=== PATIENT | male | born 1935 | race Caucasian/White ===

== ENCOUNTER 2017-03-07 09:51 | Inpatient (IN) | payer OTHER ==
[~2017-03-07] VITALS: Ht 182.9 cm; Wt 71.6 kg
[~2017-03-07 09:51] MED LIST: ACET-1311 PO; ALBINS/ INH; ALUMSUS37; ASPCH81X PO; ATOR-22 PO; BETH25TA2 PO; BISA10SU7 RE; CITA10TA8 PO; CLOT-40 TOP; ERGO500037 PO; FINA5TAB PO; GUAI100S75 PO; Ipratropium-Albuterol INH; LORA-741 PO; LVQ500 PO; METO25TA3 PO; MOML PO; MRLP17 PO; NMN5 PO; OXGN; SENN-83 PO; SODI1ENE; TAMS0.4C38 PO; TERBINAFINE 1%; [UNRECOGNIZED DRUG - CODE]; [UNRECOGNIZED DRUG - OTHER] IV
--- NOTE | 2017-03-07 10:15 | EMERGENCY ROOM VISIT NOTE ---
History First contact with patient: 09:58 Stated Complaint: SYNCOPE History of Present Illness The patient is a 81 year old male who presents to the Emergency Room due to an episode of syncope and subsequent apnea. He has Alzheimer's Disease and is a resident of [facility]. He was unable to provide a history, however as per [facility], he had a syncopal episode, and was unresponsive for 30 seconds afterwards. There was no mention of head trauma. He has also been on Levaquin for the past few days. Past Medical/Surgical History Medical Problems: (1) COPD (chronic obstructive pulmonary disease) (2) COPD exacerbation (3) Dementia (4) Diverticulitis (5) Encephalopathy acute (6) Hematuria (7) Hypotension (8) Hypoxia (9) Hypoxia (10) Ileus (11) Respiratory acidosis (12) Syncopal episodes (13) Urinary retention (14) UTI (urinary tract infection) Family History Diabetes mellitus FH: heart disease Stroke Social History Smoking Status: Unknown if Ever Smoked Drug Use: none Marital Status: single Occupation Status: retired Current/Historical Medications Scheduled Aspirin (Aspirin Chewable), 81 MG PO PM Atorvastatin (Lipitor), 20 MG PO HS Bethanechol Chloride (Urecholine), 25 MG PO TID Budesonide (Inhalation) (Pulmicort Respules 0.25MG/2ML), 2 ML INH BID Citalopram Hydrobromide (Celexa), 10 MG PO DAILY Donepezil Hydrochloride (Aricept), 10 MG PO DAILY Ergocalciferol (Vitamin D 49943 Unit), 1 CAP PO WK Finasteride (Proscar), 5 MG PO DAILY Memantine (Namenda), 5 MG PO BID Metoprolol Succ (Toprol Xl) (Toprol-Xl), 12.5 MG PO DAILY Polyethylene (Miralax), 17 GM PO DAILY Sennosides-Docusate Sodium (Senexon-S), 2 TABS PO HS Tamsulosin Hcl (Flomax), 0.4 MG PO HS Terbinafine Hcl (Topical) (Antifungal Foot), 1 APPLN TOP BID Scheduled PRN Ipratropium Alpine (Ipratropium Alpine), 1 VIAL NEB TID PRN for SOB/Wheezing Physical Exam Vital Signs Date Time Temp Pulse Resp B/P (MAP) Pulse Ox O2 Delivery O2 Flow Rate FiO2 03/07/17 11:29 54 18 101/62 95 Room Air 03/07/17 10:16 36.5 53 18 104/65 97 Room Air 03/07/17 10:16 90 Room Air 03/07/17 10:06 59 Physical Exam No pertinent findings except as reported. General Appearance: WD/WN, no apparent distress Head: normocephalic, atraumatic Respiratory/Chest: chest non-tender, no respiratory distress, no accessory muscle use, + pertinent finding (coarse breath sounds. Coughing repeatedly) Cardiovascular: regular rate, rhythm, no edema, no gallop, no JVD, no murmur , normal peripheral pulses Abdomen / GI: normal bowel sounds, non tender, soft, no organomegaly, no pulsatile mass Neurologic/Psych: + disoriented, + pertinent finding (continuously repeats words/sounds) Medical Decision & Procedures ER Provider Diagnostic Interpretation: HEAD WITHOUT CONTRAST (CT) CT DOSE: 614.27 mGy.cm HISTORY: Mental status change AMS TECHNIQUE: Multiaxial CT images of the head were performed without the use of intravenous contrast. A dose lowering technique was utilized adhering to the principles of ALARA. Comparison: 05/12/2016 Findings: The paranasal sinuses and mastoid air cells are clear. Findings of generalized cerebellar as well as cerebral atrophy. This is unchanged in the prior exam. No evidence for acute intracranial hemorrhage. No midline shift. Impression: Atrophy. Age-related change. No acute process. The above report was generated using voice recognition software. It may contain grammatical, syntax or spelling errors. Electronically signed by: Brock Neal M.D. 03/07/2017 10:52 AM Dictated Date/Time: 03/07/2017 10:51 AM CHEST ONE VIEW PORTABLE CLINICAL HISTORY: AMS dyspnea COMPARISON STUDY: 05/14/2016 FINDINGS: No evidence for cardiac enlargement. Chronic interstitial change throughout both hemithoraces. Improved prominence of pulmonary vasculature compared to the prior exam. Interposed loop of bowel beneath the right hemidiaphragm. IMPRESSION: Mild chronic interstitial change. No acute process of the chest. Laboratory Results 03/07/17 10:00 Red Blood Count 4.68, Mean Corpuscular Volume 91.9, Mean Corpuscular Hemoglobin 29.1, Mean Corpuscular Hemoglobin Concent 31.6, Mean Platelet Volume 11.8, Neutrophils (%) (Auto) 60.5, Lymphocytes (%) (Auto) 22.1, Monocytes (%) (Auto) 9.3, Eosinophils (%) (Auto) 7.1, Basophils (%) (Auto) 0.7, Neutrophils # (Auto) 3.58, Lymphocytes # (Auto) 1.31, Monocytes # (Auto) 0.55, Eosinophils # (Auto) 0.42, Basophils # (Auto) 0.04 03/07/17 10:00 Test 03/07/17 10:00 03/07/17 11:20 03/07/17 11:52 White Blood Count 5.92 K/uL (4.8-10.8) Red Blood Count 4.68 M/uL (4.7-6.1) Hemoglobin 13.6 g/dL (14.0-18.0) Hematocrit 43.0 % (42-52) Mean Corpuscular Volume 91.9 fL (80-100) Mean Corpuscular Hemoglobin 29.1 pg (25-34) Mean Corpuscular Hemoglobin Concent 31.6 g/dl (32-36) Platelet Count 178 K/uL (130-400) Mean Platelet Volume 11.8 fL (7.4-10.4) Neutrophils (%) (Auto) 60.5 % Lymphocytes (%) (Auto) 22.1 % Monocytes (%) (Auto) 9.3 % Eosinophils (%) (Auto) 7.1 % Basophils (%) (Auto) 0.7 % Neutrophils # (Auto) 3.58 K/uL (1.4-6.5) Lymphocytes # (Auto) 1.31 K/uL (1.2-3.4) Monocytes # (Auto) 0.55 K/uL (0.11-0.59) Eosinophils # (Auto) 0.42 K/uL (0-0.5) Basophils # (Auto) 0.04 K/uL (0-0.2) RDW Standard Deviation 49.3 fL (36.4-46.3) RDW Coefficient of Variation 14.7 % (11.5-14.5) Immature Granulocyte % (Auto) 0.3 % Immature Granulocyte # (Auto) 0.02 K/uL (0.00-0.02) Prothrombin Time 10.7 SECONDS (9.0-12.0) Prothromb Time International Ratio 1.0 (0.9-1.1) Activated Partial Thromboplast Time 28.0 SECONDS (21.0-31.0) Partial Thromboplastin Ratio 1.1 Anion Gap 8.0 mmol/L (3-11) Est Creatinine Clear Calc Drug Dose 63.1 ml/min Estimated GFR () 84.6 Estimated GFR (Non- 73.0 BUN/Creatinine Ratio 22.9 (10-20) Calcium Level 8.8 mg/dl (8.5-10.1) Total Bilirubin 0.4 mg/dl (0.2-1) Direct Bilirubin < 0.1 mg/dl (0-0.2) Aspartate Amino Transf (AST/SGOT) 24 U/L (15-37) Alanine Aminotransferase (ALT/SGPT) 34 U/L (12-78) Alkaline Phosphatase 119 U/L (45-117) Troponin I < 0.015 ng/ml (0-0.045) Total Protein 7.6 gm/dl (6.4-8.2) Albumin 3.1 gm/dl (3.4-5.0) Erythrocyte Sedimentation Rate 32 mm/hr (0-14) Urine Color YELLOW Urine Appearance CLEAR (CLEAR) Urine pH 7.5 (4.5-7.5) Urine Specific [place] 1.012 (1.000-1.030) Urine Protein NEG (NEG) Urine Glucose (UA) NEG (NEG) Urine Ketones NEG (NEG) Urine Occult Blood NEG (NEG) Urine Nitrite NEG (NEG) Urine Bilirubin NEG (NEG) Urine Urobilinogen NEG (NEG) Urine Leukocyte Esterase NEG (NEG) Urine WBC (Auto) 0 /hpf (0-5) Urine RBC (Auto) 0-4 /hpf (0-4) Urine Hyaline Casts (Auto) 1-5 /lpf (0-5) Urine Epithelial Cells (Auto) 10-20 /lpf (0-5) Urine Bacteria (Auto) NEG (NEG) D-Dimer 1740 ug/L FEU (0-500) Medical Decision The patient was evaluated in room B4. His imaging and lab results are listed above. His syncopal episode and apnea requires further workup and therefore he will be evaluated by the hospitalist and admitted. Departure Information Referrals No Doctor, Assigned (PCP) Resident Tracking Resident Involvement: Resident Care Provided Care Provided: Adult Hospital Medicine
--- NOTE | 2017-03-07 10:35 | DIAGNOSTIC IMAGING REPORT ---
CHEST ONE VIEW PORTABLE CLINICAL HISTORY: AMS dyspnea COMPARISON STUDY: 05/14/2016 FINDINGS: No evidence for cardiac enlargement. Chronic interstitial change throughout both hemithoraces. Improved prominence of pulmonary vasculature compared to the prior exam. Interposed loop of bowel beneath the right hemidiaphragm. IMPRESSION: Mild chronic interstitial change. No acute process of the chest. The above report was generated using voice recognition software. It may contain grammatical, syntax or spelling errors. Electronically signed by: Brock Neal M.D. 03/07/2017 10:34 AM Dictated Date/Time: 03/07/2017 10:33 AM
--- NOTE | 2017-03-07 10:44 | EMERGENCY ROOM VISIT NOTE ---
History Report prepared by Rafy: Ignacia Cisse Under the Supervision of: Dr. Bridger Henderson M.D. First contact with patient: 09:58 Stated Complaint: SYNCOPE History of Present Illness The patient is a 81 year old male who presents to the Emergency Room with complaints of a sudden syncopal episode that occurred prior to arrival. Per nursing staff the patient has a history of Alzheimer's. Nursing staff states that the patient arrives via ALS from [facility] after a syncopal episode. Nursing staff states that the patient was unresponsive for 30 seconds and then had a short episode of apnea for 30 seconds. The patient reports a persistent cough. She denies any head trauma or pain. Nursing staff notes that the patient has been on Levaquin for the past several days. The history is limited secondary to the patient's dementia. Source of History: patient, nursing staff History Limited By: dementia Onset: prior to arrival Position: other (global) Quality: other (syncopal episode) Timing: other (sudden) Associated Symptoms: + LOC Review of Systems The history and ROS are limited secondary to the patient's dementia. Past Medical & Surgical Medical Problems: (1) COPD (chronic obstructive pulmonary disease) (2) COPD exacerbation (3) Dementia (4) Diverticulitis (5) Encephalopathy acute (6) Hematuria (7) Hypotension (8) Hypoxia (9) Hypoxia (10) Ileus (11) Respiratory acidosis (12) Syncopal episodes (13) Urinary retention (14) UTI (urinary tract infection) Family History Diabetes mellitus FH: heart disease Stroke Social History Smoking Status: Unknown if Ever Smoked Drug Use: none Marital Status: single Occupation Status: retired Current/Historical Medications Scheduled Aspirin (Aspirin Chewable), 81 MG PO PM Atorvastatin (Lipitor), 20 MG PO HS Bethanechol Chloride (Urecholine), 25 MG PO TID Budesonide (Inhalation) (Pulmicort Respules 0.25MG/2ML), 2 ML INH BID Citalopram Hydrobromide (Celexa), 10 MG PO DAILY Donepezil Hydrochloride (Aricept), 10 MG PO DAILY Ergocalciferol (Vitamin D 89469 Unit), 1 CAP PO WK Finasteride (Proscar), 5 MG PO DAILY Memantine (Namenda), 5 MG PO BID Metoprolol Succ (Toprol Xl) (Toprol-Xl), 12.5 MG PO DAILY Polyethylene (Miralax), 17 GM PO DAILY Sennosides-Docusate Sodium (Senexon-S), 2 TABS PO HS Tamsulosin Hcl (Flomax), 0.4 MG PO HS Terbinafine Hcl (Topical) (Antifungal Foot), 1 APPLN TOP BID Scheduled PRN Ipratropium Norphlet (Ipratropium Norphlet), 1 VIAL NEB TID PRN for SOB/Wheezing Allergies Coded Allergies: BEE STING (Verified Allergy, Unknown, ., 02/18/15) Physical Exam Vital Signs Date Time Temp Pulse Resp B/P (MAP) Pulse Ox O2 Delivery O2 Flow Rate FiO2 03/07/17 11:29 54 18 101/62 95 Room Air 03/07/17 10:16 36.5 53 18 104/65 97 Room Air 03/07/17 10:16 90 Room Air 03/07/17 10:06 59 Physical Exam GENERAL: Patient is pleasantly demented and in no acute distress. HEENT: No acute trauma, normocephalic atraumatic, mucous membranes moist, no nasal congestion, no scleral icterus. NECK: No stridor, no adenopathy, no meningismus, trachea is midline. LUNGS: No dyspnea. Clear to auscultation and equal bilaterally. Crackles in bilateral lung maldonado, no respiratory difficulty. HEART: Regular rate and rhythm. No murmurs, rubs, gallops appreciated. ABDOMEN: Soft, nontender, bowel sounds positive, no masses appreciated, no peritonitis. BACK: No midline tenderness, no CVA tenderness EXTREMITIES: Normal motion all extremities, no cyanosis, no edema. NEUROLOGIC: Awake, answers questions, but pleasantly demented, no acute motor or sensory deficits, no focal weakness, cranial nerves grossly intact. SKIN: No rash, no jaundice, no diaphoresis. Medical Decision & Procedures ER Provider Diagnostic Interpretation: Radiology results and stated below per my review and radiologist interpretation: HEAD WITHOUT CONTRAST (CT) CT DOSE: 614.27 mGy.cm HISTORY: Mental status change AMS TECHNIQUE: Multiaxial CT images of the head were performed without the use of intravenous contrast. A dose lowering technique was utilized adhering to the principles of ALARA. Comparison: 05/12/2016 Findings: The paranasal sinuses and mastoid air cells are clear. Findings of generalized cerebellar as well as cerebral atrophy. This is unchanged in the prior exam. No evidence for acute intracranial hemorrhage. No midline shift. Impression: Atrophy. Age-related change. No acute process. The above report was generated using voice recognition software. It may contain grammatical, syntax or spelling errors. Electronically signed by: Brock Neal M.D. 03/07/2017 10:52 AM Dictated Date/Time: 03/07/2017 10:51 AM CHEST ONE VIEW PORTABLE CLINICAL HISTORY: AMS dyspnea COMPARISON STUDY: 05/14/2016 FINDINGS: No evidence for cardiac enlargement. Chronic interstitial change throughout both hemithoraces. Improved prominence of pulmonary vasculature compared to the prior exam. Interposed loop of bowel beneath the right hemidiaphragm. IMPRESSION: Mild chronic interstitial change. No acute process of the chest. The above report was generated using voice recognition software. It may contain grammatical, syntax or spelling errors. Electronically signed by: Brock Neal M.D. 03/07/2017 10:34 AM Dictated Date/Time: 03/07/2017 10:33 AM Laboratory Results 03/07/17 10:00 Red Blood Count 4.68, Mean Corpuscular Volume 91.9, Mean Corpuscular Hemoglobin 29.1, Mean Corpuscular Hemoglobin Concent 31.6, Mean Platelet Volume 11.8, Neutrophils (%) (Auto) 60.5, Lymphocytes (%) (Auto) 22.1, Monocytes (%) (Auto) 9.3, Eosinophils (%) (Auto) 7.1, Basophils (%) (Auto) 0.7, Neutrophils # (Auto) 3.58, Lymphocytes # (Auto) 1.31, Monocytes # (Auto) 0.55, Eosinophils # (Auto) 0.42, Basophils # (Auto) 0.04 03/07/17 10:00 Test 03/07/17 10:00 03/07/17 11:20 03/07/17 11:52 White Blood Count 5.92 K/uL (4.8-10.8) Red Blood Count 4.68 M/uL (4.7-6.1) Hemoglobin 13.6 g/dL (14.0-18.0) Hematocrit 43.0 % (42-52) Mean Corpuscular Volume 91.9 fL (80-100) Mean Corpuscular Hemoglobin 29.1 pg (25-34) Mean Corpuscular Hemoglobin Concent 31.6 g/dl (32-36) Platelet Count 178 K/uL (130-400) Mean Platelet Volume 11.8 fL (7.4-10.4) Neutrophils (%) (Auto) 60.5 % Lymphocytes (%) (Auto) 22.1 % Monocytes (%) (Auto) 9.3 % Eosinophils (%) (Auto) 7.1 % Basophils (%) (Auto) 0.7 % Neutrophils # (Auto) 3.58 K/uL (1.4-6.5) Lymphocytes # (Auto) 1.31 K/uL (1.2-3.4) Monocytes # (Auto) 0.55 K/uL (0.11-0.59) Eosinophils # (Auto) 0.42 K/uL (0-0.5) Basophils # (Auto) 0.04 K/uL (0-0.2) RDW Standard Deviation 49.3 fL (36.4-46.3) RDW Coefficient of Variation 14.7 % (11.5-14.5) Immature Granulocyte % (Auto) 0.3 % Immature Granulocyte # (Auto) 0.02 K/uL (0.00-0.02) Prothrombin Time 10.7 SECONDS (9.0-12.0) Prothromb Time International Ratio 1.0 (0.9-1.1) Activated Partial Thromboplast Time 28.0 SECONDS (21.0-31.0) Partial Thromboplastin Ratio 1.1 Anion Gap 8.0 mmol/L (3-11) Est Creatinine Clear Calc Drug Dose 63.1 ml/min Estimated GFR () 84.6 Estimated GFR (Non- 73.0 BUN/Creatinine Ratio 22.9 (10-20) Calcium Level 8.8 mg/dl (8.5-10.1) Total Bilirubin 0.4 mg/dl (0.2-1) Direct Bilirubin < 0.1 mg/dl (0-0.2) Aspartate Amino Transf (AST/SGOT) 24 U/L (15-37) Alanine Aminotransferase (ALT/SGPT) 34 U/L (12-78) Alkaline Phosphatase 119 U/L (45-117) Troponin I < 0.015 ng/ml (0-0.045) Total Protein 7.6 gm/dl (6.4-8.2) Albumin 3.1 gm/dl (3.4-5.0) Erythrocyte Sedimentation Rate 32 mm/hr (0-14) Urine Color YELLOW Urine Appearance CLEAR (CLEAR) Urine pH 7.5 (4.5-7.5) Urine Specific [place] 1.012 (1.000-1.030) Urine Protein NEG (NEG) Urine Glucose (UA) NEG (NEG) Urine Ketones NEG (NEG) Urine Occult Blood NEG (NEG) Urine Nitrite NEG (NEG) Urine Bilirubin NEG (NEG) Urine Urobilinogen NEG (NEG) Urine Leukocyte Esterase NEG (NEG) Urine WBC (Auto) 0 /hpf (0-5) Urine RBC (Auto) 0-4 /hpf (0-4) Urine Hyaline Casts (Auto) 1-5 /lpf (0-5) Urine Epithelial Cells (Auto) 10-20 /lpf (0-5) Urine Bacteria (Auto) NEG (NEG) D-Dimer 1740 ug/L FEU (0-500) Laboratory results as reviewed by me. ECG Indication: syncope Rate (beats per minute): 56 Rhythm: sinus bradycardia Findings: no acute ischemic change, prolonged QT, no ectopy ED Course 1001: The patient was evaluated in room B4B. A complete history and physical exam was performed by Dr. Gan, Solution Strategist. 1019: The patient was evaluated in room B4B. A complete history and physical exam was performed. 1114: I reevaluated the patient and he is resting. 1121: I discussed the patient's case with Donya Singh. He is going to evaluate the patient for further treatment. Medical Decision Differential: Toxicological, Infectious, Stroke, SAH, Trauma, Electrolyte Abnormality, Hypoglycemia, Alcohol Intoxication, Drug Intoxication, Cardiac Abnormality, Sepsis, Meningitis/Encephalitis, Trauma, Excited Delirium, Serotonin Syndrome, Psychiatric, amongst other pathologies entertained. 81 yr old pleasantly demented male on Levaquin for reportedly lung source arrives for evaluation of <1 minute syncope with respiratory arrest. No compressions given and patient came too without any interventions. CXR, CT Head , labs unremarkable. EKG with mild QTC prolongation. No evidence torsades currently. Large BM here otherwise no acute findings. Given witnessed syncope at care home will bring in for further monitoring. Medication Reconcilliation Current Medication List: was personally reviewed by me Blood Pressure Screening Patient's blood pressure: Normal blood pressure Blood pressure disposition: Did not require urgent referral (will be monitored by hospitalist) Consults Time Called: 1114 Consulting Physician: Donya Singh Returned Call: 1121 I discussed the patient's case with Donya Singh. He is going to evaluate the patient for further treatment. Impression Primary Impression: Syncope Additional Impression: QT prolongation Scribe Attestation The scribe's documentation has been prepared under my direction and personally reviewed by me in its entirety. I confirm that the note above accurately reflects all work, treatment, procedures, and medical decision making performed by me. Departure Information Dispostion Being Evaluated By Hospitalist Referrals No Doctor, Assigned (PCP) Problem Qualifiers
[2017-03-07] MEDS ORDERED: ATRINS NEB (10:46)
[2017-03-07] MEDS ORDERED: BUDE0.253 INH (10:46)
[2017-03-07] MEDS ORDERED: DONE10TA12 PO (10:46)
[2017-03-07] MEDS ORDERED: TERB1CRE41 TOP (10:50)
--- NOTE | 2017-03-07 10:54 | DIAGNOSTIC IMAGING REPORT ---
HEAD WITHOUT CONTRAST (CT) CT DOSE: 614.27 mGy.cm HISTORY: Mental status change AMS TECHNIQUE: Multiaxial CT images of the head were performed without the use of intravenous contrast. A dose lowering technique was utilized adhering to the principles of ALARA. Comparison: 05/12/2016 Findings: The paranasal sinuses and mastoid air cells are clear. Findings of generalized cerebellar as well as cerebral atrophy. This is unchanged in the prior exam. No evidence for acute intracranial hemorrhage. No midline shift. Impression: Atrophy. Age-related change. No acute process. The above report was generated using voice recognition software. It may contain grammatical, syntax or spelling errors. Electronically signed by: Brock Neal M.D. 03/07/2017 10:52 AM Dictated Date/Time: 03/07/2017 10:51 AM
[2017-03-07 10:56] LABS: BASO % 0.7 %; BASO ABS # 0.04 K/uL (0-0.2); COMPLETE YES; EOS % 7.1 %; IG% 0.3 %; LYMPH % 22.1 %; LYMPH ABS # 1.31 K/uL (1.2-3.4); MEAN CELL VOLUME 91.9 fL (80-100); MEAN CORPUSCULAR HEMOGLOBIN 29.1 pg (25-34); MEAN CORPUSCULAR HGB CONC 31.6 g/dl (32-36); MEAN PLATELET VOLUME 11.8 fL (7.4-10.4); MONO % 9.3 %; NEUT % 60.5 %; PLATELET COUNT 178 K/uL (130-400); RED BLOOD COUNT 4.68 M/uL (4.7-6.1); WHITE BLOOD COUNT 5.92 K/uL (4.8-10.8)
[2017-03-07 11:03] LABS: PARTIAL THROMBOPLASTIN RATIO 1.1; PROTHROMBIN TIME (PATIENT) 10.7 SECONDS (9.0-12.0)
[2017-03-07 11:06] LABS: ALT/SGPT 34 U/L (12-78); BLOOD UREA NITROGEN 22 mg/dl (7-18); BUN/CREATININE RATIO 22.9 (10-20); CALCIUM 8.8 mg/dl (8.5-10.1); CARBON DIOXIDE 27 mmol/L (21-32); CHLORIDE 107 mmol/L (98-107); CREATININE 0.98 mg/dl (0.60-1.40); GLUCOSE 90 mg/dl (70-99); POTASSIUM 4.5 mmol/L (3.5-5.1); SODIUM 142 mmol/L (136-145)
[2017-03-07 11:11] LABS: ALKALINE PHOSPHATASE 119 U/L (45-117); AST/SGOT 24 U/L (15-37)
[2017-03-07 11:38] LABS: URINE APPEARANCE CLEAR (CLEAR); URINE BILIRUBIN NEG (NEG); URINE COLOR YELLOW; URINE NITRITE NEG (NEG); URINE PH 7.5 (4.5-7.5); URINE SPECIFIC GRAVITY 1.012 (1.000-1.030); UROBILINOGEN NEG (NEG); ZZURINE CULT IF INDIC CATH NO
[2017-03-07 11:39] LABS: MANUAL MICROSCOPIC REQUIRED? NO; REVIEW REQ? NO
[2017-03-07] MEDS ORDERED: ALUMINUM/MAGNESIUM/SIMETH (MAALOX MAX) 30 ML UDC PO PRN (12:00)
[2017-03-07] MEDS ORDERED: NITROGLYCERIN 0.4 MG SL PER TAB CHARGE SL PRN (12:00)
[2017-03-07] MEDS ORDERED: ACETAMINOPHEN 325 MG TAB PO PRN (12:00)
[2017-03-07] MEDS ORDERED: MAGNESIUM HYDROXIDE SUSP 30 ML UDC PO PRN (12:00)
[2017-03-07] MEDS ORDERED: ALBUT/IPRATROP 3MG/0.5MG NEB 3 ML VIAL INH PRN (12:00)
[2017-03-07] MEDS ORDERED: POLYETHYLENE (MIRALAX) 17 GM PACK PO PRN (12:00)
--- NOTE | 2017-03-07 12:22 | History and Physical ---
History & Physical Date & Time of Service: Mar 07, 2017 at 12:22 Chief Complaint: Syncope Primary Care Physician: Anushka Williamson M.D. History of Present Illness Source: hospital records, EMS 81 yo male a resident of [facility] with advanced dementia , HTN , hyperlipidemia , sent to ER today for a syncopal episode pt is unable to give any information due to dementia as per ER record -pt had a coughing spell followed by syncope , noted to be apneic for 30 sec pt recovered spontaneously , on arrival to ED , he was awake and alert, mumbling word, no hypoxia CT head negative for acute CVA Cxray -negative study D dimer was elevated CTA of chest done-shows no evidence of PE , essentially negative study Past Medical/Surgical History Medical Problems: (1) COPD (chronic obstructive pulmonary disease) Status: Chronic (2) COPD exacerbation Status: Resolved (3) Dementia Status: Chronic (4) Diverticulitis Status: Chronic (5) Hematuria Status: Resolved (6) Hypotension Status: Resolved (7) Hypoxia Status: Resolved (8) Hypoxia Status: Resolved (9) Ileus Status: Chronic (10) Respiratory acidosis Status: Resolved (11) Urinary retention Status: Chronic (12) UTI (urinary tract infection) Status: Resolved Family History Diabetes mellitus FH: heart disease Stroke Social History Smoking Status: Unknown if Ever Smoked Drug Use: none Marital Status: single Housing status: senior living Occupational Status: retired Immunizations History of Influenza Vaccine: Unknown History of Tetanus Vaccine?: Unknown History of Pneumococcal: Unknown History of Hepatitis B Vaccine: Unknown Multi-Drug Resistant Organisms History of MDRO: No Allergies Coded Allergies: BEE STING (Verified Allergy, Unknown, ., 02/18/15) Home Medications Scheduled Aspirin (Aspirin Chewable), 81 MG PO PM Atorvastatin (Lipitor), 20 MG PO HS Bethanechol Chloride (Urecholine), 25 MG PO TID Budesonide (Inhalation) (Pulmicort Respules 0.25MG/2ML), 2 ML INH BID Citalopram Hydrobromide (Celexa), 10 MG PO DAILY Donepezil Hydrochloride (Aricept), 10 MG PO DAILY Ergocalciferol (Vitamin D 16840 Unit), 1 CAP PO WK Finasteride (Proscar), 5 MG PO DAILY Memantine (Namenda), 5 MG PO BID Metoprolol Succ (Toprol Xl) (Toprol-Xl), 12.5 MG PO DAILY Polyethylene (Miralax), 17 GM PO DAILY Sennosides-Docusate Sodium ([place]-S), 2 TABS PO HS Tamsulosin Hcl (Flomax), 0.4 MG PO HS Terbinafine Hcl (Topical) (Antifungal Foot), 1 APPLN TOP BID Scheduled PRN Ipratropium [place] (Ipratropium [place]), 1 VIAL NEB TID PRN for SOB/Wheezing Review of Systems unable to obtain due to pt's dementia Physical Exam Vital Signs Date Time Temp Pulse Resp B/P (MAP) Pulse Ox O2 Delivery O2 Flow Rate FiO2 03/07/17 12:20 58 18 105/65 97 Room Air 03/07/17 11:29 54 18 101/62 95 Room Air 03/07/17 10:16 36.5 53 18 104/65 97 Room Air 03/07/17 10:16 90 Room Air 03/07/17 10:06 59 General Appearance: no apparent distress Head: normocephalic, atraumatic Eyes: sclerae normal Neck: supple, no carotid bruits, trachea midline Respiratory/Chest: chest non-tender, lungs clear, normal breath sounds, no respiratory distress Cardiovascular: regular rate, rhythm, no edema, no gallop, no JVD, normal peripheral pulses Abdomen/GI: normal bowel sounds, non tender, soft Neurologic/Psych: alert, + pertinent finding (advanced dementia ) Diagnostics Laboratory Results Results Past 24 Hours Test 03/07/17 10:00 03/07/17 11:20 03/07/17 11:52 Range/Units White Blood Count 5.92 4.8-10.8 K/uL Red Blood Count 4.68 4.7-6.1 M/uL Hemoglobin 13.6 14.0-18.0 g/dL Hematocrit 43.0 42-52 % Mean Corpuscular Volume 91.9 80-100 fL Mean Corpuscular Hemoglobin 29.1 25-34 pg Mean Corpuscular Hemoglobin Concent 31.6 32-36 g/dl Platelet Count 178 130-400 K/uL Mean Platelet Volume 11.8 7.4-10.4 fL Neutrophils (%) (Auto) 60.5 % Lymphocytes (%) (Auto) 22.1 % Monocytes (%) (Auto) 9.3 % Eosinophils (%) (Auto) 7.1 % Basophils (%) (Auto) 0.7 % Neutrophils # (Auto) 3.58 1.4-6.5 K/uL Lymphocytes # (Auto) 1.31 1.2-3.4 K/uL Monocytes # (Auto) 0.55 0.11-0.59 K/uL Eosinophils # (Auto) 0.42 0-0.5 K/uL Basophils # (Auto) 0.04 0-0.2 K/uL RDW Standard Deviation 49.3 36.4-46.3 fL RDW Coefficient of Variation 14.7 11.5-14.5 % Immature Granulocyte % (Auto) 0.3 % Immature Granulocyte # (Auto) 0.02 0.00-0.02 K/uL Prothrombin Time 10.7 9.0-12.0 SECONDS Prothromb Time International Ratio 1.0 0.9-1.1 Activated Partial Thromboplast Time 28.0 21.0-31.0 SECONDS Partial Thromboplastin Ratio 1.1 Sodium Level 142 136-145 mmol/L Potassium Level 4.5 3.5-5.1 mmol/L Chloride Level 107 98-107 mmol/L Carbon Dioxide Level 27 21-32 mmol/L Anion Gap 8.0 3-11 mmol/L Blood Urea Nitrogen 22 7-18 mg/dl Creatinine 0.98 0.60-1.40 mg/dl Est Creatinine Clear Calc Drug Dose 63.1 ml/min Estimated GFR () 84.6 Estimated GFR (Non- 73.0 BUN/Creatinine Ratio 22.9 10-20 Random Glucose 90 70-99 mg/dl Calcium Level 8.8 8.5-10.1 mg/dl Total Bilirubin 0.4 0.2-1 mg/dl Direct Bilirubin < 0.1 0-0.2 mg/dl Aspartate Amino Transf (AST/SGOT) 24 15-37 U/L Alanine Aminotransferase (ALT/SGPT) 34 12-78 U/L Alkaline Phosphatase 119 45-117 U/L Troponin I < 0.015 0-0.045 ng/ml Total Protein 7.6 6.4-8.2 gm/dl Albumin 3.1 3.4-5.0 gm/dl Erythrocyte Sedimentation Rate 32 0-14 mm/hr Urine Color YELLOW Urine Appearance CLEAR CLEAR Urine pH 7.5 4.5-7.5 Urine Specific [place] 1.012 1.000-1.030 Urine Protein NEG NEG Urine Glucose (UA) NEG NEG Urine Ketones NEG NEG Urine Occult Blood NEG NEG Urine Nitrite NEG NEG Urine Bilirubin NEG NEG Urine Urobilinogen NEG NEG Urine Leukocyte Esterase NEG NEG Urine WBC (Auto) 0 0-5 /hpf Urine RBC (Auto) 0-4 0-4 /hpf Urine Hyaline Casts (Auto) 1-5 0-5 /lpf Urine Epithelial Cells (Auto) 10-20 0-5 /lpf Urine Bacteria (Auto) NEG NEG D-Dimer 1740 0-500 ug/L FEU Diagnostic Radiology CT HEAD : Impression: Atrophy. Age-related change. No acute process. LOWER EXT DOPPLER : no evidence of DVT CT CHEST WITH CONTRAST : IMPRESSION: 1. No evidence of acute pulmonary embolism 2. No evidence of pathologic adenopathy 3. No evidence of focal pulmonary consolidation 4. Severe pulmonary emphysema EKG Sinus bradycardia Left axis deviation Low voltage QRS Inferior infarct (cited on or before 05-MAR-2014) ST & T wave abnormality, consider lateral ischemia Abnormal ECG When compared with ECG of 12-MAY-2016 10:30, Vent. rate has decreased BY 33 BPM Inverted T waves have replaced nonspecific T wave abnormality in Lateral leads Vent. rate 56 BPM SD interval 136 ms QRS duration 82 ms QT/QTc 502/484 ms P-R-T axes -11 -46 127 Impression Assessment and Plan SYNCOPE : not sure of the etiology possible vasovagal -coughing spell leading to syncope ; then spontaneous recovery no CVA noted in CT head no neurological deficit monitor in tele ; ordered for ECHO , serial cardiac markers fall precaution PROLONG Q TC : daily EKG follow Mg , K level in AM avoid medications can cause prolong Qtc -no Zofran , Haldol ADVANCED DEMENTIA : Alzheimer's dementia -advanced at baseline pt can not recognized family members talks to himself cont Girma has been in [facility] past 3 yrs caution for avoid BDZ avoid Haldol for prolong Qtc HTN : BP stable cont beta charline HYPERLIPIDEMIA : on statin FULL CODE : pt does not have advanced directive , no living will adult sons and daughter lives in different states pt remains Full code DVT PROPHYLAXIS : sub q heparin DISPOSITION : resident at [facility] return to [facility] when medically stable social service consulted for discharge planning pt 's significant other /Girl friend Deborah and Daughter Abigail Diop updated over phone family wants to be notified with any change of condition CONTACTS; Deborah Silverman # [phone] Abigail Diop ( daughter ) # [phone] Level of Care Telemetry Resuscitation Status FULL RESUSCITATION VTE Prophylaxis VTE Risk Assessment Done? Y/N: Yes Risk Level: Moderate Given or contraindicated: Unfractionated heparin SQ Additional Copies To Anushka Williamson M.D.
[2017-03-07] MEDS ORDERED: OPTIRAY 320 IV PRN (12:45)
[2017-03-07 12:52] VITALS: BP 122/84; PULSE 62; TEMP 36.8; O2SAT 97; Ht 182.9 cm; Wt 71.6 kg
--- NOTE | 2017-03-07 14:23 | DIAGNOSTIC IMAGING REPORT ---
ULTRASOUND VENOUS DOPPLER LWR EXT BILA CLINICAL HISTORY: Leg swelling. Elevated d-dimer. COMPARISON STUDY: No previous studies for comparison. FINDINGS: Real-time and color flow Doppler imaging were performed. Flow was seen within the femoral, popliteal and calf veins with no intraluminal thrombus demonstrated. The saphenous vein is patent. IMPRESSION: No evidence of lower extremity DVT. Electronically signed by: Deon Valadez M.D. 03/07/2017 2:22 PM Dictated Date/Time: 03/07/2017 2:19 PM
[2017-03-07] MEDS ORDERED: INFLUENZA ADMINISTRATION CHARGE ONE (14:45)
[2017-03-07] MEDS ORDERED: PNEUMOCOCCAL ADMINISTRATION CHARGE ONE (14:45)
[2017-03-07] MEDS ORDERED: INFLUENZA VACCINE HIGH DOSE 65+ 0.5 ML SYR IM. ONE (14:45)
[2017-03-07] MEDS ORDERED: PNEUMOCOCCAL POLYSACCHARIDES 25 MCG/0.5 ML VIAL/SYR IM. ONE (14:45)
--- NOTE | 2017-03-07 14:45 | DIAGNOSTIC IMAGING REPORT ---
CT ANGIOGRAM OF THE CHEST CLINICAL HISTORY: Shortness of breath. Leg swelling. Positive d-dimer. COMPARISON STUDY: 11/26/2014 TECHNIQUE: Following the IV administration of 94 mL of Optiray-320, CT angiogram of the thorax was performed from the thoracic inlet to the lung bases utilizing the pulmonary embolus protocol. Images are reviewed in the axial, sagittal, and coronal planes. IV contrast was administered without complication. MIP imaging was performed. A dose lowering technique was utilized adhering to the principles of ALARA. CT DOSE: 518.63 mGy.cm FINDINGS: There are multiple left renal cysts. There are multiple hypodense hepatic lesions, likely representing cysts. No pathologically enlarged axillary mediastinal or hilar lymph nodes were visualized. The ascending thoracic aorta measures 41 mm. No intimal flap is visualized. There were no pulmonary artery filling defects to indicate acute pulmonary embolism. There are trace bilateral pleural effusions. There is severe pulmonary emphysema. There is respiratory motion artifact. There is no focal pulmonary consolidation. There are mild basilar atelectatic changes. There is a tiny amount of mucoid material within the right bronchus intermedius. IMPRESSION: 1. No evidence of acute pulmonary embolism 2. No evidence of pathologic adenopathy 3. No evidence of focal pulmonary consolidation 4. Severe pulmonary emphysema Electronically signed by: Deon Valadez M.D. 03/07/2017 2:44 PM Dictated Date/Time: 03/07/2017 2:37 PM
[2017-03-07] MEDS ORDERED: PERFLUTREN LIPID MICROSPHERE (DEFINITY) IV ONE (15:17)
--- NOTE | 2017-03-07 15:41 | ECHOCARDIOGRAM REPORT ---
*NOTICE TO RECEIVING LIBERTARIAN AGENCY This information is strictly Confidential and protected under [place] law. [place] law prohibits you from making any further disclosure of this information unless further disclosure is expressly permitted by the written consent of the person to whom it pertains or is authorized by law. A general authorization for the release of medical or other information is not sufficient for this purpose. Hospital accepts no responsibility if the information is made available to any other person, INCLUDING THE PATIENT. Interpretation Summary * Name: LAUREEN RAO Study Date: 03/07/2017 02:34 PM BP: 105/65 mmHg * Patient Location: [facility] HR: 60 * : 1935 (M/d/yyy) Gender: Male Height: 70 in * Age: 81 yrs Ethnicity: CA Weight: 168 lb * Ordering Physician: Shavonne Smith * Performed By: Catina Wu RDCS * * Reason For Study: SYNCOPE * BSA: 1.9 m2 * -- Conclusions -- * The study was technically difficult and technically limited due to patient characteristics and inability to cooperate with the procedure. * The left ventricular chamber size, wall motion , and systolic function are grossly normal on technically limited assessment. * The right ventricular chamber size and systolic function are grossly normal. * The valves were not assessed adequately to make comment. Procedure Details * The study was technically limited. * The study was technically difficult. * Limited views were obtained. * There were technical limitations due to patient's inability to cooperate * A contrast injection of Definity was performed to improve assessment of LV function. * Contrast was injected into an intravenous site in the left arm. * One vial of Definity ultrasound contrast was diluted in normal saline to a total volume of 10 ml. A total of '3' ml of solution was administered during imaging. * Lot # [id number] of Definity utilized for procedure. * Expiration date 03/02. * The attending nurse who injected the contrast agent was BRYANNA JO RN. Left Ventricle * The left ventricualar chamber size, wall motion , and systolic function are grossly normal on technically limited assessment. Right Ventricle * The right ventricular chamber size and systolic function are grossly normal. MMode 2D Measurements and Calculations IVSd 1.5 cm IVSs 1.9 cm LVIDd 3.6 cm LVIDs 2.2 cm LVPWd 1.1 cm LVPWs 2.0 cm IVS/LVPW 1.3 FS 36.9 % EDV(Teich) 53.0 ml ESV(Teich) 17.1 ml EF(Teich) 67.7 % EDV(cubed) 45.1 ml ESV(cubed) 11.4 ml EF(cubed) 74.8 % % IVS thick 27.7 % % LVPW thick 79.2 % LV mass(C)d 160.1 grams LV mass(C)dI 82.6 grams/m\S\2 LV mass(C)s 187.7 grams LV mass(C)sI 96.8 grams/m\S\2 SV(Teich) 35.9 ml SI(Teich) 18.5 ml/m\S\2 SV(cubed) 33.8 ml SI(cubed) 17.4 ml/m\S\2 LVOT diam 2.1 cm LVOT area 3.5 cm\S\2 Doppler Measurements and Calculations Ao V2 max 88.0 cm/sec Ao max PG 3.1 mmHg Ao max PG (full) 0.47 mmHg JULIAN(V,A) 3.3 cm\S\2 JULIAN(V,D) 3.3 cm\S\2 LV V1 max PG 2.6 mmHg LV V1 max 81.1 cm/sec
[2017-03-07] MEDS: BETHANECHOL CHL 25 MG TAB PO SCH ×2 (15:47→21:59)
[2017-03-07 16:00] VITALS: BP 104/62; PULSE 65; TEMP 36.8; O2SAT 91
[2017-03-07 16:15] VITALS: O2SAT 91
[2017-03-07 18:40] LABS: CKMB/CK RATIO 5.2 (0-3.0)
[2017-03-07 19:10] VITALS: BP 90/50; PULSE 92; TEMP 36.4; O2SAT 92
[2017-03-07 19:32] VITALS: PULSE 64; O2SAT 93
[2017-03-07] MEDS ORDERED: SODIUM CHLORIDE 0.9% 1000ML 1,000 ML IV SCH (20:00)
[2017-03-07] MEDS ORDERED: BUDESONIDE 0.25 MG/2 ML VIAL (PULMICORT) INH SCH (20:00)
[2017-03-07] MEDS: BUDESONIDE 0.5 MG/2 ML VIAL (PULMICORT) INH SCH (20:00)
[2017-03-07] MEDS: TERBINAFINE CR 30 GM TUBE EXT SCH (21:57)
[2017-03-07] MEDS: TAMSULOSIN HCL 0.4 MG CAP PO SCH (21:58)
[2017-03-07] MEDS: MEMANTINE 5 MG TAB PO SCH (21:58)
[2017-03-07] MEDS: DOCUSATE SODIUM/SENNA 50/8.6MG TAB PO SCH (21:58)
[2017-03-07] MEDS: ATORVASTATIN 20 MG TAB PO SCH (22:00)
[2017-03-07] MEDS: ASPIRIN 81 MG ECTAB PO SCH (22:00)
[2017-03-07 23:40] VITALS: BP 121/75; PULSE 64; TEMP 37.1; O2SAT 90
[2017-03-08] VITALS (10 sets, daily range): BP systolic 99–126; BP diastolic 56–70; PULSE 63–84; TEMP 36.5–37.4; O2SAT 90–99
[2017-03-08 02:31] LABS: CKMB/CK RATIO 4.3 (0-3.0)
[2017-03-08 06:41] LABS: CHOLESTEROL/HDL RATIO 2.1
--- NOTE | 2017-03-08 06:52 | Clinical Documentation Query ---
CLINICAL DOCUMENTATION QUERY A 81 yo male a resident of [facility] with advanced dementia , HTN , hyperlipidemia , sent to ER today for a syncopal episode . In your clinical opinion is this patient being managed for: (x ) Encephalopathy, resolved ( ) Not Agree ( ) Other explanation of clinical findings (Please Explain) ( ) Unable to determine (Please Define) ( ) Need to Discuss The medical record reflects the following clinical findings, treatment, and risk factors. Clinical Indicators: Documented LOC with period of apnea Treatment: Telemetry, echo, fall precautions Risk Factors: Age, falls Please clarify and document your clinical opinion in the progress notes and discharge summary. Terms such as "probable", "suspected", "likely", "questionable", "possible", or "still to be ruled out" are acceptable. IF IN AGREEMENT, YOU MUST DOCUMENT ABOVE DIAGNOSTIC STATEMENT IN DAILY PROGRESS NOTES AND DISCHARGE SUMMARY. This document is not part of the patient's record. Thank You, Lynda Morrow RN [phone]
[2017-03-08] MEDS: BUDESONIDE 0.5 MG/2 ML VIAL (PULMICORT) INH SCH ×2 (06:58→19:40)
[2017-03-08] MEDS: POLYETHYLENE (MIRALAX) 17 GM PACK PO SCH (07:30)
[2017-03-08] MEDS: TERBINAFINE CR 30 GM TUBE EXT SCH ×2 (07:30→21:18)
[2017-03-08] MEDS: MEMANTINE 5 MG TAB PO SCH ×2 (07:31→21:17)
[2017-03-08] MEDS: FINASTERIDE 5 MG TAB PO SCH (07:31)
[2017-03-08] MEDS: BETHANECHOL CHL 25 MG TAB PO SCH ×3 (07:32→21:18)
[2017-03-08] MEDS: METOPROLOL SUCC 25MG EXT REL TAB PO SCH (07:32)
--- NOTE | 2017-03-08 11:00 | Progress Note ---
Subjective Date of Service: Mar 08, 2017. Subjective Pt evaluation today including: physical exam, lab review, review of studies, review of inpatient medication list Saw/examined the patient in room 244 Patient is pleasantly demented Talking to himself prior to my arrival in the room he is awake and alert, but otherwise, no conversation could take place due to dementia Problem List Medical Problems: (1) Altered mental status Status: Acute (2) Pneumonitis Status: Acute (3) QT prolongation Status: Acute (4) Syncope Status: Acute Medications Current Inpatient Medications Medications (Trade) Dose Ordered Sig/Leatha Route Start Time Stop Time Status Last Admin Dose Admin Acetaminophen (Tylenol Tab) 650 mg Q4H PRN PO 03/07/17 12:00 04/06/17 11:59 Al Hydrox/Mg Hydrox/Simethicone (Maalox Max Susp) 15 ml Q4H PRN PO 03/07/17 12:00 04/06/17 11:59 Magnesium Hydroxide (Milk Of Magnesia Susp) 30 ml Q12H PRN PO 03/07/17 12:00 04/06/17 11:59 Nitroglycerin (Nitrostat Tab) 0.4 mg UD PRN SL 03/07/17 12:00 04/06/17 11:59 Polyethylene (Miralax Powder Packet) 17 gm DAILY PRN PO 03/07/17 12:00 04/06/17 11:59 Aspirin (Ecotrin Tab) 81 mg QPM PO 03/07/17 21:00 04/06/17 20:59 03/07/17 22:00 81 MG Atorvastatin Calcium (Lipitor Tab) 20 mg HS PO 03/07/17 21:00 04/06/17 20:59 03/07/17 22:00 20 MG Bethanechol Chloride (Urecholine Tab) 25 mg TID PO 03/07/17 14:00 04/06/17 13:59 03/08/17 07:32 25 MG Finasteride (Proscar Tab) 5 mg DAILY PO 03/08/17 09:00 04/07/17 08:59 03/08/17 07:31 5 MG Memantine (Namenda Tab) 5 mg BID PO 03/07/17 21:00 04/06/17 20:59 03/08/17 07:31 5 MG Metoprolol Succinate (Toprol Xl Tab) 12.5 mg DAILY PO 03/08/17 09:00 04/07/17 08:59 03/08/17 07:32 12.5 MG Polyethylene (Miralax Powder Packet) 17 gm DAILY PO 03/08/17 09:00 04/07/17 08:59 03/08/17 07:30 17 GM Senna/Docusate Sodium (Senokot S Tab) 2 tab HS PO 03/07/17 21:00 04/06/17 20:59 03/07/17 21:58 2 TAB Tamsulosin HCl (Flomax Cap) 0.4 mg HS PO 03/07/17 21:00 04/06/17 20:59 03/07/17 21:58 0.4 MG Terbinafine HCl (Lamisil At Cream) 1 appl BID EXT 03/07/17 21:00 04/06/17 20:59 03/08/17 07:30 1 APPL Albuterol/ Ipratropium (Duoneb) 3 ml Q4R PRN INH 03/07/17 12:00 04/06/17 11:59 Ioversol (Optiray 320) 125 ml UD PRN IV 03/07/17 12:45 03/11/17 12:44 Budesonide (Pulmicort Respules 0.5MG/ 2ML Neb Soln) 0.5 mg BIDR INH 03/07/17 20:00 04/06/17 19:59 03/08/17 06:58 0.5 MG Objective Vital Signs Date Time Temp Pulse Resp B/P (MAP) Pulse Ox O2 Delivery O2 Flow Rate FiO2 03/08/17 07:42 36.9 84 20 99/64 (76) 92 Room Air 03/08/17 07:31 65 18 93 Room Air 03/08/17 04:03 Room Air 03/08/17 03:10 36.7 63 25 100/61 (74) 93 Room Air 03/08/17 00:00 Room Air 03/07/17 23:40 37.1 64 18 121/75 (90) 90 Room Air 03/07/17 20:00 Room Air 03/07/17 19:32 64 18 93 Room Air 03/07/17 19:10 36.4 92 20 90/50 (63) 92 Room Air 03/07/17 16:15 91 Room Air 03/07/17 16:00 36.8 65 18 104/62 (76) 91 Room Air 03/07/17 12:52 36.8 62 20 122/84 97 Room Air 03/07/17 12:23 60 03/07/17 12:20 58 18 105/65 97 Room Air 03/07/17 11:29 54 18 101/62 95 Room Air Physical Exam General Appearance: no apparent distress, + pertinent finding (pleasantly demented) Respiratory/Chest: lungs clear, normal breath sounds, no respiratory distress, no accessory muscle use Cardiovascular: regular rate, rhythm, no edema, no murmur Extremities: normal inspection, no pedal edema Laboratory Results Last 24 Hours Test 03/07/17 11:20 03/07/17 11:52 03/07/17 17:51 03/08/17 01:47 Erythrocyte Sedimentation Rate 32 mm/hr Urine Color YELLOW Urine Appearance CLEAR Urine pH 7.5 Urine Specific [place] 1.012 Urine Protein NEG Urine Glucose (UA) NEG Urine Ketones NEG Urine Occult Blood NEG Urine Nitrite NEG Urine Bilirubin NEG Urine Urobilinogen NEG Urine Leukocyte Esterase NEG Urine WBC (Auto) 0 /hpf Urine RBC (Auto) 0-4 /hpf Urine Hyaline Casts (Auto) 1-5 /lpf Urine Epithelial Cells (Auto) 10-20 /lpf Urine Bacteria (Auto) NEG D-Dimer 1740 ug/L FEU Total Creatine Kinase 99 U/L 94 U/L Creatine Kinase MB 5.1 ng/ml 4.0 ng/ml Creatine Kinase MB Ratio 5.2 4.3 Troponin I < 0.015 ng/ml < 0.015 ng/ml Test 03/08/17 06:05 Magnesium Level 2.4 mg/dl Triglycerides Level 132 mg/dl Cholesterol Level 108 mg/dl HDL Cholesterol 51 mg/dl LDL Cholesterol, Calculated 31 mg/dl VLDL Cholesterol, Calculated 26 mg/dl Cholesterol/HDL Ratio 2.1 Assessment and Plan This is a 81 year old male with a PMH of advanced dementia, hx. of an SC, BPH, COPD, depression sent from nursing facility due to syncope Syncope possibly due to functional decline, failure to thrive patient with underlying dementia, long-term resident at nursing facility BMI noted to be on the lower side as per notes, he had a coughing spell and became apneic and passed out regained consciousness in the ED; seems to be closer to baseline now monitor in tele Advanced Dementia does not recognize family, no coherent conversations; speaking to himself No agitation noted at this time continue Namenda and Aricept restarted Celexa added boost BIDM - though unsure of how compliant patient will be due to dementia Hx. of SC continue aspirin, b-charline, statin BPH continue home medications DVT ppx subq heparin FULL CODE - will need to discuss with family for further details
[2017-03-08] MEDS: BOOST VANILLA PO SCH ×2 (16:33)
[2017-03-08] MEDS: TAMSULOSIN HCL 0.4 MG CAP PO SCH (21:17)
[2017-03-08] MEDS: DOCUSATE SODIUM/SENNA 50/8.6MG TAB PO SCH (21:17)
[2017-03-08] MEDS: ASPIRIN 81 MG ECTAB PO SCH (21:18)
[2017-03-08] MEDS: ATORVASTATIN 20 MG TAB PO SCH (21:18)
[2017-03-08] MEDS: HEPARIN SOD 5000 UNIT/0.5 ML CARP SQ SCH (21:27)
[2017-03-09] VITALS (12 sets, daily range): BP systolic 98–154; BP diastolic 64–86; PULSE 66–80; TEMP 36.5–37; O2SAT 91–97
--- NOTE | 2017-03-09 06:02 | Clinical Documentation Query ---
CLINICAL DOCUMENTATION QUERY A 81 yo male a resident of [facility] with advanced dementia , HTN , hyperlipidemia , sent to ER today for a syncopal episode . In your clinical opinion is this patient being managed for: ( ) Encephalopathy, resolved ( X ) Not Agree ( ) Other explanation of clinical findings (Please Explain) ( ) Unable to determine (Please Define) ( ) Need to Discuss The medical record reflects the following clinical findings, treatment, and risk factors. Clinical Indicators: Documented LOC with period of apnea Treatment: Telemetry, echo, fall precautions Risk Factors: Age, falls Please clarify and document your clinical opinion in the progress notes and discharge summary. Terms such as "probable", "suspected", "likely", "questionable", "possible", or "still to be ruled out" are acceptable. IF IN AGREEMENT, YOU MUST DOCUMENT ABOVE DIAGNOSTIC STATEMENT IN DAILY PROGRESS NOTES AND DISCHARGE SUMMARY. This document is not part of the patient's record. Thank You, Lynda Morrow RN [phone]
[2017-03-09] MEDS: BUDESONIDE 0.5 MG/2 ML VIAL (PULMICORT) INH SCH ×2 (06:50→19:33)
[2017-03-09 06:51] LABS: HEMATOCRIT 38.9 % (42-52); MEAN CELL VOLUME 91.7 fL (80-100); MEAN CORPUSCULAR HEMOGLOBIN 30.2 pg (25-34); MEAN CORPUSCULAR HGB CONC 32.9 g/dl (32-36); MEAN PLATELET VOLUME 11.2 fL (7.4-10.4); PLATELET COUNT 147 K/uL (130-400); RED BLOOD COUNT 4.24 M/uL (4.7-6.1); WHITE BLOOD COUNT 6.51 K/uL (4.8-10.8)
[2017-03-09 07:22] LABS: BUN/CREATININE RATIO 18.3 (10-20); CALCIUM 8.6 mg/dl (8.5-10.1); CREATININE 0.91 mg/dl (0.60-1.40); POTASSIUM 4.1 mmol/L (3.5-5.1)
[2017-03-09] MEDS: BOOST VANILLA PO SCH ×4 (07:30→16:45)
[2017-03-09] MEDS: BETHANECHOL CHL 25 MG TAB PO SCH ×3 (08:43→19:18)
[2017-03-09] MEDS: MEMANTINE 5 MG TAB PO SCH ×2 (08:43→19:15)
[2017-03-09] MEDS: CITALOPRAM 20 MG TAB PO SCH (08:44)
[2017-03-09] MEDS: METOPROLOL SUCC 25MG EXT REL TAB PO SCH (08:44)
[2017-03-09] MEDS: FINASTERIDE 5 MG TAB PO SCH (08:44)
[2017-03-09] MEDS: POLYETHYLENE (MIRALAX) 17 GM PACK PO SCH (08:45)
[2017-03-09] MEDS: TERBINAFINE CR 30 GM TUBE EXT SCH ×2 (08:45→19:14)
[2017-03-09] MEDS: HEPARIN SOD 5000 UNIT/0.5 ML CARP SQ SCH ×2 (08:47→19:21)
[2017-03-09] MEDS ORDERED: DONEPEZIL HCL 10 MG TAB PO SCH (09:00)
[2017-03-09] MEDS ORDERED: CIPROFLOXACIN HCL 3.5 GM TUBE OP ONE (09:45)
--- NOTE | 2017-03-09 10:20 | Progress Note ---
Subjective Date of Service: Mar 09, 2017. Subjective Pt evaluation today including: conversation w/ patient, physical exam, lab review, review of studies, review of inpatient medication list Saw/examined the patient in room 244 Pleasantly demented L eye with pus and drainage Problem List Medical Problems: (1) Altered mental status Status: Acute (2) Pneumonitis Status: Acute (3) QT prolongation Status: Acute (4) Syncope Status: Acute Medications Current Inpatient Medications Medications (Trade) Dose Ordered Sig/Leatha Route Start Time Stop Time Status Last Admin Dose Admin Acetaminophen (Tylenol Tab) 650 mg Q4H PRN PO 03/07/17 12:00 04/06/17 11:59 Al Hydrox/Mg Hydrox/Simethicone (Maalox Max Susp) 15 ml Q4H PRN PO 03/07/17 12:00 04/06/17 11:59 Magnesium Hydroxide (Milk Of Magnesia Susp) 30 ml Q12H PRN PO 03/07/17 12:00 04/06/17 11:59 Nitroglycerin (Nitrostat Tab) 0.4 mg UD PRN SL 03/07/17 12:00 04/06/17 11:59 Polyethylene (Miralax Powder Packet) 17 gm DAILY PRN PO 03/07/17 12:00 04/06/17 11:59 Aspirin (Ecotrin Tab) 81 mg QPM PO 03/07/17 21:00 04/06/17 20:59 03/08/17 21:18 81 MG Atorvastatin Calcium (Lipitor Tab) 20 mg HS PO 03/07/17 21:00 04/06/17 20:59 03/08/17 21:18 20 MG Bethanechol Chloride (Urecholine Tab) 25 mg TID PO 03/07/17 14:00 04/06/17 13:59 03/09/17 08:43 25 MG Finasteride (Proscar Tab) 5 mg DAILY PO 03/08/17 09:00 04/07/17 08:59 03/09/17 08:44 5 MG Memantine (Namenda Tab) 5 mg BID PO 03/07/17 21:00 04/06/17 20:59 03/09/17 08:43 5 MG Metoprolol Succinate (Toprol Xl Tab) 12.5 mg DAILY PO 03/08/17 09:00 04/07/17 08:59 03/09/17 08:44 12.5 MG Polyethylene (Miralax Powder Packet) 17 gm DAILY PO 03/08/17 09:00 04/07/17 08:59 03/08/17 07:30 17 GM Senna/Docusate Sodium (Senokot S Tab) 2 tab HS PO 03/07/17 21:00 04/06/17 20:59 03/08/17 21:17 2 TAB Tamsulosin HCl (Flomax Cap) 0.4 mg HS PO 03/07/17 21:00 04/06/17 20:59 03/08/17 21:17 0.4 MG Terbinafine HCl (Lamisil At Cream) 1 appl BID EXT 03/07/17 21:00 04/06/17 20:59 03/09/17 08:45 1 APPL Albuterol/ Ipratropium (Duoneb) 3 ml Q4R PRN INH 03/07/17 12:00 04/06/17 11:59 Ioversol (Optiray 320) 125 ml UD PRN IV 03/07/17 12:45 03/11/17 12:44 Budesonide (Pulmicort Respules 0.5MG/ 2ML Neb Soln) 0.5 mg BIDR INH 03/07/17 20:00 04/06/17 19:59 03/09/17 06:50 0.5 MG Citalopram Hydrobromide (celeXA TAB) 10 mg DAILY PO 03/09/17 09:00 04/08/17 08:59 03/09/17 08:44 10 MG Enteral Nutritional Formula (Boost) 1 can BIDM PO 03/08/17 16:45 04/07/17 16:44 03/08/17 16:33 1 CAN Donepezil HCl (Aricept Tab) 10 mg HS PO 03/09/17 21:00 04/08/17 08:59 Heparin Sodium (Porcine) (Heparin Sq 5000 Unit/0.5ml) 5,000 unit Q12 SQ 03/08/17 21:00 04/07/17 20:59 03/09/17 08:47 5,000 UNIT Ciprofloxacin HCl (Ciloxan 0.3% Op Oint) 1 appln Q2HWA OP 03/09/17 12:00 03/19/17 11:59 Objective Vital Signs Date Time Temp Pulse Resp B/P (MAP) Pulse Ox O2 Delivery O2 Flow Rate FiO2 03/09/17 08:00 92 Room Air 03/09/17 07:48 36.6 75 18 122/68 (86) 92 Room Air 03/09/17 04:18 36.5 70 16 133/71 (91) 93 Room Air 03/09/17 04:00 Room Air 03/09/17 00:51 36.9 75 23 132/74 (93) 91 Room Air 03/09/17 00:00 Room Air 03/08/17 20:00 99 Room Air 03/08/17 19:42 75 18 90 Room Air 03/08/17 18:41 36.5 77 18 126/67 (86) 99 Room Air 03/08/17 16:00 99 Room Air 03/08/17 15:21 37.4 66 18 104/56 (72) 91 Room Air 03/08/17 11:43 36.9 68 18 110/70 (83) 95 Room Air 03/08/17 10:46 Room Air 03/08/17 10:33 36.8 64 20 111/70 (84) 91 Room Air Physical Exam General Appearance: no apparent distress, + pertinent finding (Pleasantly demented) Eyes: + pertinent finding (L eye closed shut, there is some pus surrounding it) Respiratory/Chest: lungs clear, normal breath sounds, no respiratory distress, no accessory muscle use Cardiovascular: regular rate, rhythm, no edema, no murmur Laboratory Results Last 24 Hours Test 03/09/17 06:28 White Blood Count 6.51 K/uL Red Blood Count 4.24 M/uL Hemoglobin 12.8 g/dL Hematocrit 38.9 % Mean Corpuscular Volume 91.7 fL Mean Corpuscular Hemoglobin 30.2 pg Mean Corpuscular Hemoglobin Concent 32.9 g/dl RDW Standard Deviation 48.7 fL RDW Coefficient of Variation 14.4 % Platelet Count 147 K/uL Mean Platelet Volume 11.2 fL Sodium Level 140 mmol/L Potassium Level 4.1 mmol/L Chloride Level 108 mmol/L Carbon Dioxide Level 27 mmol/L Anion Gap 5.0 mmol/L Blood Urea Nitrogen 17 mg/dl Creatinine 0.91 mg/dl Est Creatinine Clear Calc Drug Dose 65.3 ml/min Estimated GFR () 92.6 Estimated GFR (Non- 79.9 BUN/Creatinine Ratio 18.3 Random Glucose 86 mg/dl Calcium Level 8.6 mg/dl Assessment and Plan This is a 81 year old male with a PMH of advanced dementia, hx. of an [place], BPH, COPD, depression sent from nursing facility due to syncope Syncope possibly due to functional decline, failure to thrive patient with underlying dementia, long-term resident at nursing facility BMI noted to be on the lower side as per notes, he had a coughing spell and became apneic and passed out regained consciousness in the ED; seems to be closer to baseline now monitor in tele Bacterial Conjunctivitis L eye seems to have pus and closed eye shut Will add Cipro drops Advanced Dementia does not recognize family, no coherent conversations; speaking to himself No agitation noted at this time continue Namenda and Aricept restarted Celexa added boost BIDM - though unsure of how compliant patient will be due to dementia Hx. of [place] continue aspirin, b-charline, statin BPH continue home medications DVT ppx subq heparin FULL CODE - will need to discuss with family for further details
[2017-03-09] MEDS: CIPROFLOXACIN HCL 3.5 GM TUBE OP SCH ×2 (12:00→14:24)
[2017-03-09] MEDS: CIPROFLOXACIN HCL 0.3% OP SOLN 2.5 ML BTL OP SCH ×4 (16:04→22:27)
[2017-03-09] MEDS: ATORVASTATIN 20 MG TAB PO SCH (19:16)
[2017-03-09] MEDS: ASPIRIN 81 MG ECTAB PO SCH (19:16)
[2017-03-09] MEDS: DONEPEZIL HCL 10 MG TAB PO SCH (19:17)
[2017-03-09] MEDS: DOCUSATE SODIUM/SENNA 50/8.6MG TAB PO SCH (19:18)
[2017-03-09] MEDS: TAMSULOSIN HCL 0.4 MG CAP PO SCH (19:18)
[2017-03-10] VITALS (8 sets, daily range): BP systolic 91–122; BP diastolic 54–76; PULSE 61–78; TEMP 36.4–37.2; O2SAT 90–95
[2017-03-10] MEDS: CIPROFLOXACIN HCL 0.3% OP SOLN 2.5 ML BTL OP SCH ×9 (05:47→22:09)
[2017-03-10] MEDS: BUDESONIDE 0.5 MG/2 ML VIAL (PULMICORT) INH SCH ×2 (07:20→20:00)
[2017-03-10] MEDS: BOOST VANILLA PO SCH ×4 (08:23→16:35)
[2017-03-10] MEDS: TERBINAFINE CR 30 GM TUBE EXT SCH ×2 (08:23→19:32)
[2017-03-10] MEDS: BETHANECHOL CHL 25 MG TAB PO SCH ×3 (08:24→19:34)
[2017-03-10] MEDS: FINASTERIDE 5 MG TAB PO SCH (08:24)
[2017-03-10] MEDS: METOPROLOL SUCC 25MG EXT REL TAB PO SCH (08:24)
[2017-03-10] MEDS: MEMANTINE 5 MG TAB PO SCH ×2 (08:24→19:34)
[2017-03-10] MEDS: POLYETHYLENE (MIRALAX) 17 GM PACK PO SCH (08:25)
[2017-03-10] MEDS: HEPARIN SOD 5000 UNIT/0.5 ML CARP SQ SCH ×2 (08:26→19:43)
[2017-03-10] MEDS: CITALOPRAM 20 MG TAB PO SCH (08:26)
--- NOTE | 2017-03-10 09:18 | Progress Note ---
Subjective Date of Service: Mar 10, 2017. Subjective Pt evaluation today including: conversation w/ patient, physical exam, lab review, review of studies, review of inpatient medication list Saw/examined the patient in room 244 His L eye seems improved, now open and no pus as per nursing, he seems to be coughing after eating solid food, but no coughing with pureed food. Problem List Medical Problems: (1) Altered mental status Status: Acute (2) Pneumonitis Status: Acute (3) QT prolongation Status: Acute (4) Syncope Status: Acute Medications Current Inpatient Medications Medications (Trade) Dose Ordered Sig/Leatha Route Start Time Stop Time Status Last Admin Dose Admin Acetaminophen (Tylenol Tab) 650 mg Q4H PRN PO 03/07/17 12:00 04/06/17 11:59 Al Hydrox/Mg Hydrox/Simethicone (Maalox Max Susp) 15 ml Q4H PRN PO 03/07/17 12:00 04/06/17 11:59 Magnesium Hydroxide (Milk Of Magnesia Susp) 30 ml Q12H PRN PO 03/07/17 12:00 04/06/17 11:59 Nitroglycerin (Nitrostat Tab) 0.4 mg UD PRN SL 03/07/17 12:00 04/06/17 11:59 Polyethylene (Miralax Powder Packet) 17 gm DAILY PRN PO 03/07/17 12:00 04/06/17 11:59 Aspirin (Ecotrin Tab) 81 mg QPM PO 03/07/17 21:00 04/06/17 20:59 03/09/17 19:16 81 MG Atorvastatin Calcium (Lipitor Tab) 20 mg HS PO 03/07/17 21:00 04/06/17 20:59 03/09/17 19:16 20 MG Bethanechol Chloride (Urecholine Tab) 25 mg TID PO 03/07/17 14:00 04/06/17 13:59 03/10/17 08:24 25 MG Finasteride (Proscar Tab) 5 mg DAILY PO 03/08/17 09:00 04/07/17 08:59 03/10/17 08:24 5 MG Memantine (Namenda Tab) 5 mg BID PO 03/07/17 21:00 04/06/17 20:59 03/10/17 08:24 5 MG Metoprolol Succinate (Toprol Xl Tab) 12.5 mg DAILY PO 03/08/17 09:00 04/07/17 08:59 03/10/17 08:24 12.5 MG Polyethylene (Miralax Powder Packet) 17 gm DAILY PO 03/08/17 09:00 04/07/17 08:59 03/10/17 08:25 17 GM Senna/Docusate Sodium (Senokot S Tab) 2 tab HS PO 03/07/17 21:00 04/06/17 20:59 03/09/17 19:18 2 TAB Tamsulosin HCl (Flomax Cap) 0.4 mg HS PO 03/07/17 21:00 04/06/17 20:59 03/09/17 19:18 0.4 MG Terbinafine HCl (Lamisil At Cream) 1 appl BID EXT 03/07/17 21:00 04/06/17 20:59 03/10/17 08:23 1 APPL Albuterol/ Ipratropium (Duoneb) 3 ml Q4R PRN INH 03/07/17 12:00 04/06/17 11:59 03/10/17 07:20 3 ML Ioversol (Optiray 320) 125 ml UD PRN IV 03/07/17 12:45 03/11/17 12:44 Budesonide (Pulmicort Respules 0.5MG/ 2ML Neb Soln) 0.5 mg BIDR INH 03/07/17 20:00 04/06/17 19:59 03/10/17 07:20 0.5 MG Citalopram Hydrobromide (celeXA TAB) 10 mg DAILY PO 03/09/17 09:00 04/08/17 08:59 03/10/17 08:26 10 MG Enteral Nutritional Formula (Boost) 1 can BIDM PO 03/08/17 16:45 04/07/17 16:44 03/10/17 08:23 1 CAN Donepezil HCl (Aricept Tab) 10 mg HS PO 03/09/17 21:00 04/08/17 08:59 03/09/17 19:17 10 MG Heparin Sodium (Porcine) (Heparin Sq 5000 Unit/0.5ml) 5,000 unit Q12 SQ 03/08/17 21:00 04/07/17 20:59 03/10/17 08:26 5,000 UNIT Ciprofloxacin HCl (Ciprofloxacin 0.3% Op Soln) 1 drops Q2HWA OP 03/09/17 16:00 03/19/17 15:59 03/10/17 08:23 1 DROPS Objective Vital Signs Date Time Temp Pulse Resp B/P (MAP) Pulse Ox O2 Delivery O2 Flow Rate FiO2 03/10/17 08:07 36.7 61 19 107/66 (80) 94 Room Air 03/10/17 08:00 92 Room Air 03/10/17 07:20 78 16 90 Room Air 03/10/17 04:00 Room Air 03/10/17 00:00 Room Air 03/09/17 23:09 36.9 70 16 122/80 (94) 92 Room Air 03/09/17 20:00 Room Air 03/09/17 19:36 80 18 91 Room Air 03/09/17 19:11 37.0 80 18 122/83 (96) 91 Room Air 03/09/17 16:00 92 Room Air 03/09/17 15:13 36.5 69 18 119/72 (88) 91 Room Air 03/09/17 12:00 92 Room Air 03/09/17 12:00 76 03/09/17 10:59 36.5 66 16 98/64 (75) 95 Room Air Physical Exam General Appearance: no apparent distress, + pertinent finding (+pleasantly demented) Assessment and Plan This is a 81 year old male with a PMH of advanced dementia, hx. of an [place], BPH, COPD, depression sent from nursing facility due to syncope Syncope possibly due to functional decline, failure to thrive patient with underlying dementia, long-term resident at nursing facility BMI noted to be on the lower side as per notes, he had a coughing spell and became apneic and passed out regained consciousness in the ED; seems to be closer to baseline now monitor in tele Bacterial Conjunctivitis L eye seems to have pus and closed eye shut Will add Cipro drops Advanced Dementia 03/10 changed diet to pureed diet aspiration precautions 03/09 does not recognize family, no coherent conversations; speaking to himself No agitation noted at this time continue Namenda and Aricept restarted Celexa added boost BIDM - though unsure of how compliant patient will be due to dementia Hx. of [place] continue aspirin, b-charline, statin BPH continue home medications DVT ppx subq heparin FULL CODE - will need to discuss with family for further details
[2017-03-10] MEDS: ASPIRIN 81 MG ECTAB PO SCH (19:32)
[2017-03-10] MEDS: ATORVASTATIN 20 MG TAB PO SCH (19:32)
[2017-03-10] MEDS: DONEPEZIL HCL 10 MG TAB PO SCH (19:33)
[2017-03-10] MEDS: DOCUSATE SODIUM/SENNA 50/8.6MG TAB PO SCH (19:33)
[2017-03-10] MEDS: TAMSULOSIN HCL 0.4 MG CAP PO SCH (19:34)
[2017-03-11 04:19] VITALS: BP 123/72; PULSE 69; TEMP 36.5; O2SAT 92
[2017-03-11] MEDS: CIPROFLOXACIN HCL 0.3% OP SOLN 2.5 ML BTL OP SCH ×4 (05:11→12:33)
[2017-03-11] MEDS: BUDESONIDE 0.5 MG/2 ML VIAL (PULMICORT) INH SCH (07:24)
[2017-03-11 07:41] LABS: HEMATOCRIT 38.2 % (42-52); MEAN CELL VOLUME 91.4 fL (80-100); MEAN CORPUSCULAR HEMOGLOBIN 29.2 pg (25-34); MEAN CORPUSCULAR HGB CONC 31.9 g/dl (32-36); PLATELET COUNT 157 K/uL (130-400); RED BLOOD COUNT 4.18 M/uL (4.7-6.1); WHITE BLOOD COUNT 6.05 K/uL (4.8-10.8)
[2017-03-11 07:53] VITALS: BP 117/73; PULSE 60; TEMP 37; O2SAT 94
[2017-03-11 08:11] LABS: BUN/CREATININE RATIO 19.7 (10-20); CALCIUM 8.8 mg/dl (8.5-10.1); CREATININE 0.94 mg/dl (0.60-1.40); POTASSIUM 4.2 mmol/L (3.5-5.1)
[2017-03-11] MEDS: TERBINAFINE CR 30 GM TUBE EXT SCH (09:27)
[2017-03-11] MEDS: POLYETHYLENE (MIRALAX) 17 GM PACK PO SCH (09:27)
[2017-03-11] MEDS: BOOST VANILLA PO SCH ×2 (09:27)
[2017-03-11] MEDS: CITALOPRAM 20 MG TAB PO SCH (09:28)
[2017-03-11] MEDS: MEMANTINE 5 MG TAB PO SCH (09:28)
[2017-03-11] MEDS: FINASTERIDE 5 MG TAB PO SCH (09:29)
[2017-03-11] MEDS: METOPROLOL SUCC 25MG EXT REL TAB PO SCH (09:29)
[2017-03-11] MEDS: BETHANECHOL CHL 25 MG TAB PO SCH ×2 (09:29→12:38)
[2017-03-11] MEDS: HEPARIN SOD 5000 UNIT/0.5 ML CARP SQ SCH (09:34)
--- NOTE | 2017-03-11 12:33 | Progress Note ---
Subjective Date of Service: Mar 11, 2017. Subjective Pt evaluation today including: conversation w/ patient, physical exam, lab review, review of studies, review of inpatient medication list Saw/examined the patient in room 244 No problems/issues to note today Spoke with Deborah, patient's girlfriend for the past 14 years - she states that he's been doing well at [facility] Was sent to the hospital due to coughing fit and apneic episode No issues to note here with the pureed diet Problem List Medical Problems: (1) Altered mental status Status: Acute (2) Pneumonitis Status: Acute (3) QT prolongation Status: Acute (4) Syncope Status: Acute Medications Current Inpatient Medications Medications (Trade) Dose Ordered Sig/Leatha Route Start Time Stop Time Status Last Admin Dose Admin Acetaminophen (Tylenol Tab) 650 mg Q4H PRN PO 03/07/17 12:00 04/06/17 11:59 03/10/17 16:35 650 MG Al Hydrox/Mg Hydrox/Simethicone (Maalox Max Susp) 15 ml Q4H PRN PO 03/07/17 12:00 04/06/17 11:59 Magnesium Hydroxide (Milk Of Magnesia Susp) 30 ml Q12H PRN PO 03/07/17 12:00 04/06/17 11:59 Nitroglycerin (Nitrostat Tab) 0.4 mg UD PRN SL 03/07/17 12:00 04/06/17 11:59 Polyethylene (Miralax Powder Packet) 17 gm DAILY PRN PO 03/07/17 12:00 04/06/17 11:59 Aspirin (Ecotrin Tab) 81 mg QPM PO 03/07/17 21:00 04/06/17 20:59 03/10/17 19:32 81 MG Atorvastatin Calcium (Lipitor Tab) 20 mg HS PO 03/07/17 21:00 04/06/17 20:59 03/10/17 19:32 20 MG Bethanechol Chloride (Urecholine Tab) 25 mg TID PO 03/07/17 14:00 04/06/17 13:59 03/11/17 09:29 25 MG Finasteride (Proscar Tab) 5 mg DAILY PO 03/08/17 09:00 04/07/17 08:59 03/11/17 09:29 5 MG Memantine (Namenda Tab) 5 mg BID PO 03/07/17 21:00 04/06/17 20:59 03/11/17 09:28 5 MG Metoprolol Succinate (Toprol Xl Tab) 12.5 mg DAILY PO 03/08/17 09:00 04/07/17 08:59 03/11/17 09:29 12.5 MG Polyethylene (Miralax Powder Packet) 17 gm DAILY PO 03/08/17 09:00 04/07/17 08:59 03/11/17 09:27 17 GM Senna/Docusate Sodium (Senokot S Tab) 2 tab HS PO 03/07/17 21:00 04/06/17 20:59 03/10/17 19:33 2 TAB Tamsulosin HCl (Flomax Cap) 0.4 mg HS PO 03/07/17 21:00 04/06/17 20:59 03/10/17 19:34 0.4 MG Terbinafine HCl (Lamisil At Cream) 1 appl BID EXT 03/07/17 21:00 04/06/17 20:59 03/11/17 09:27 1 APPL Albuterol/ Ipratropium (Duoneb) 3 ml Q4R PRN INH 03/07/17 12:00 04/06/17 11:59 03/10/17 07:20 3 ML Ioversol (Optiray 320) 125 ml UD PRN IV 03/07/17 12:45 03/11/17 12:44 Budesonide (Pulmicort Respules 0.5MG/ 2ML Neb Soln) 0.5 mg BIDR INH 03/07/17 20:00 04/06/17 19:59 03/11/17 07:24 0.5 MG Citalopram Hydrobromide (celeXA TAB) 10 mg DAILY PO 03/09/17 09:00 04/08/17 08:59 03/11/17 09:28 10 MG Enteral Nutritional Formula (Boost) 1 can BIDM PO 03/08/17 16:45 04/07/17 16:44 03/11/17 09:27 1 CAN Donepezil HCl (Aricept Tab) 10 mg HS PO 03/09/17 21:00 04/08/17 08:59 03/10/17 19:33 10 MG Heparin Sodium (Porcine) (Heparin Sq 5000 Unit/0.5ml) 5,000 unit Q12 SQ 03/08/17 21:00 04/07/17 20:59 03/11/17 09:34 5,000 UNIT Ciprofloxacin HCl (Ciprofloxacin 0.3% Op Soln) 1 drops Q2HWA OP 03/09/17 16:00 03/19/17 15:59 03/11/17 10:58 1 DROPS Objective Vital Signs Date Time Temp Pulse Resp B/P (MAP) Pulse Ox O2 Delivery O2 Flow Rate FiO2 03/11/17 08:00 Room Air 03/11/17 07:53 37.0 60 16 117/73 (88) 94 Room Air 03/11/17 04:19 36.5 69 20 123/72 (89) 92 Room Air 03/11/17 04:00 Room Air 03/11/17 00:00 Room Air 03/10/17 23:23 37.2 68 20 119/75 (90) 92 Room Air 03/10/17 21:20 77 16 90 Room Air 03/10/17 20:00 Room Air 03/10/17 18:42 36.4 76 20 91/54 (66) 91 Room Air 03/10/17 16:00 Room Air 03/10/17 15:02 36.8 62 19 122/72 (89) 94 Room Air Physical Exam General Appearance: no apparent distress, + pertinent finding (pleasantly demented) Respiratory/Chest: no respiratory distress, no accessory muscle use Laboratory Results Last 24 Hours Test 03/11/17 07:22 White Blood Count 6.05 K/uL Red Blood Count 4.18 M/uL Hemoglobin 12.2 g/dL Hematocrit 38.2 % Mean Corpuscular Volume 91.4 fL Mean Corpuscular Hemoglobin 29.2 pg Mean Corpuscular Hemoglobin Concent 31.9 g/dl RDW Standard Deviation 48.6 fL RDW Coefficient of Variation 14.6 % Platelet Count 157 K/uL Mean Platelet Volume 11.0 fL Sodium Level 144 mmol/L Potassium Level 4.2 mmol/L Chloride Level 110 mmol/L Carbon Dioxide Level 31 mmol/L Anion Gap 3.0 mmol/L Blood Urea Nitrogen 18 mg/dl Creatinine 0.94 mg/dl Est Creatinine Clear Calc Drug Dose 64.5 ml/min Estimated GFR () 89.0 Estimated GFR (Non- 76.8 BUN/Creatinine Ratio 19.7 Random Glucose 87 mg/dl Calcium Level 8.8 mg/dl Assessment and Plan This is a 81 year old male with a PMH of advanced dementia, hx. of an [place], BPH, COPD, depression sent from nursing facility due to syncope Patient is doing well today Plan is to discharge patient back to [facility] dementia unit Deborah, patient's girlfriend, made aware CM aware and transportation set-up will d/c with Cipro drops to the L eye pureed diet to prevent aspiration Syncope possibly due to functional decline, failure to thrive patient with underlying dementia, long-term resident at nursing facility BMI noted to be on the lower side as per notes, he had a coughing spell and became apneic and passed out regained consciousness in the ED; seems to be closer to baseline now monitor in tele Bacterial Conjunctivitis L eye seems to have pus and closed eye shut Will add Cipro drops Advanced Dementia 03/10 changed diet to pureed diet aspiration precautions 03/09 does not recognize family, no coherent conversations; speaking to himself No agitation noted at this time continue Namenda and Aricept restarted Celexa added boost BIDM - though unsure of how compliant patient will be due to dementia Hx. of [place] continue aspirin, b-charline, statin BPH continue home medications DVT ppx subq heparin FULL CODE - will need to discuss with family for further details
[2017-03-11] MEDS ORDERED: CLXOPS3 OP (12:36)
--- NOTE | 2017-03-11 12:45 | Discharge Instructions ---
Discharge Instructions Date of Service Mar 11, 2017. Admission Reason for Admission: Encephalopathy Acute,Syncopal Episodes Discharge Discharge Diagnosis / Problem: Apneic Spell, Dementia Discharge Goals Goal(s): Decrease discomfort, Improve function, Diagnostic testing, Therapeutic intervention Activity Recommendations Activity Level: Up Ad Tasha . Additional Information Patient informed of condition: No Advance Directives: No DNR: No Level of Care: Other Communicable Disease: No Prognosis: Stable Current Hospital Diet Patient's current hospital diet: Regular Diet Discharge Diet Recommended Diet: Regular Diet Diet Texture: Pureed (blended smooth) Pending Studies Studies pending at discharge: no Laboratory Results Lipid Panel Test 03/08/17 06:05 Range/Units Triglycerides Level 132 0-150 mg/dl Cholesterol Level 108 0-200 mg/dl HDL Cholesterol 51 mg/dl Cholesterol/HDL Ratio 2.1 LDL Cholesterol, Calculated 31 mg/dl Medical Emergencies . Who to Call and When: Medical Emergencies: If at any time you feel your situation is an emergency, please call 911 immediately. . Non-Emergent Contact Non-Emergency issues call your: Primary Care Provider . . "Provider Documentation" section prepared by Marianne Lugo. . Core Measure Problem Core Measures: None
--- NOTE | 2017-03-11 12:47 | Discharge Summary ---
Discharge Summary Date of Service Mar 11, 2017. Discharge Summary Admission Date: Mar 07, 2017 at 11:52 Discharge Date: Mar 11, 2017 Discharge Disposition: [facility] facility Principal Diagnosis: Alzheimer's dementia Apneic Episode Bacterial Conjunctivitis of the L eye Medication Reconciliation New Medications: Ciprofloxacin HCl (Ciprofloxacin HCl) 37 Drops/2.5 Ml Soln 1 DROPS OP Q2HWA for 5 Days, #1 BTL Continued Medications: Aspirin (Aspirin Chewable) 81 Mg Chew 81 MG PO PM Take 1 tab every evening with supper Atorvastatin (Lipitor) 20 Mg Tab 20 MG PO HS for 30 Days, TAB 5 Refills Bethanechol Chloride (Urecholine) 25 Mg Tab 25 MG PO TID, #30 Budesonide (Inhalation) (Pulmicort Respules 0.25MG/2ML) 0.25 Mg/2 Ml Zulma 2 ML INH BID, EA Citalopram Hydrobromide (Celexa) 10 Mg Tab 10 MG PO DAILY for 30 Days, #30 TAB 2 Refills Donepezil Hydrochloride (Aricept) 10 Mg Tab 10 MG PO DAILY, TAB Ergocalciferol (Vitamin D 60155 Unit) 50,000 Unit Cap 1 CAP PO WK for 28 Days, #4 CAP 5 Refills PT to take on Mondays Finasteride (Proscar) 5 Mg Tab 5 MG PO DAILY, #30 Ipratropium [place] (Ipratropium [place]) 0.5 Mg/2.5 Ml Nebu 1 VIAL NEB TID PRN for SOB/Wheezing, ML 3 Refills Memantine (Namenda) 5 Mg Tab 5 MG PO BID, TAB Metoprolol Succ (Toprol Xl) (Toprol-Xl) 25 Mg Tabcr 12.5 MG PO DAILY, #30 TAB TAKE 1/2 TABLET BY MOUTH DAILY Polyethylene (Miralax) 17 Gm Pack 17 GM PO DAILY, #60 Sennosides-Docusate Sodium (Senexon-S) 1 Tab Tab 2 TABS PO HS Tamsulosin Hcl (Flomax) 0.4 Mg Cap 0.4 MG PO HS, #30 Terbinafine Hcl (Topical) (Antifungal Foot) 1 % Cre 1 APPLN TOP BID TO FEET & BETWEEN TOES Admission Information HPI (per Admitting provider): 81 yo male a resident of [facility] with advanced dementia , HTN , hyperlipidemia , sent to ER today for a syncopal episode pt is unable to give any information due to dementia as per ER record -pt had a coughing spell followed by syncope , noted to be apneic for 30 sec pt recovered spontaneously , on arrival to ED , he was awake and alert, mumbling word, no hypoxia CT head negative for acute CVA Cxray -negative study D dimer was elevated CTA of chest done-shows no evidence of PE , essentially negative study Physical Exam (per Admitting): General Appearance: no apparent distress Head: normocephalic, atraumatic Eyes: sclerae normal Neck: supple, no carotid bruits, trachea midline Respiratory/Chest: chest non-tender, lungs clear, normal breath sounds, no respiratory distress Cardiovascular: regular rate, rhythm, no edema, no gallop, no JVD, normal peripheral pulses Abdomen/GI: normal bowel sounds, non tender, soft Neurologic/Psych: alert, + pertinent finding (advanced dementia ) Hospital Course This is a 81 year old male with a PMH of advanced dementia, hx. of an [place], BPH, COPD, depression sent from nursing facility due to syncope Patient is doing well today Plan is to discharge patient back to [facility] dementia unit Deborah, patient's girlfriend, made aware CM aware and transportation set-up will d/c with Cipro drops to the L eye pureed diet to prevent aspiration Syncope possibly due to functional decline, failure to thrive patient with underlying dementia, long-term resident at nursing facility BMI noted to be on the lower side as per notes, he had a coughing spell and became apneic and passed out regained consciousness in the ED; seems to be closer to baseline now monitor in tele Bacterial Conjunctivitis L eye seems to have pus and closed eye shut Will add Cipro drops Advanced Dementia 03/10 changed diet to pureed diet aspiration precautions 03/09 does not recognize family, no coherent conversations; speaking to himself No agitation noted at this time continue Namenda and Aricept restarted Celexa added boost BIDM - though unsure of how compliant patient will be due to dementia Hx. of [place] continue aspirin, b-charline, statin BPH continue home medications DVT ppx subq heparin FULL CODE - will need to discuss with family for further details Total time spent on discharge = 40 minutes This includes examination of the patient, discharge planning, medication reconciliation, and communication with other providers. Discharge Instructions Current Hospital Diet Patient's current hospital diet: Regular Diet Discharge Diet Recommended Diet: Regular Diet Diet Texture: Pureed (blended smooth)
[2017-03-11 13:13] VITALS: BP 117/73; PULSE 60; TEMP 37; O2SAT 94
== END 2017-03-11 14:24 | DRG 57 ==
LOC: EDBD 09:51 → C.EDB 09:53 → C.2T 11:52 → ENRESERV 12:17 → C.2T 13:37
PROVIDERS: ADMIT Hospitalist; ATTEND Family Medicine
DX: G30.9 Alzheimer's disease, unspecified (principal); F02.80 Dementia in other diseases classified elsewhere, unspecified severity, without behavioral disturbance, psychotic disturbance, mood disturbance, and anxiety; R06.81 Apnea, not elsewhere classified; R55 Syncope and collapse; R62.7 Adult failure to thrive; R53.81 Other malaise; H10.9 Unspecified conjunctivitis; I45.81 Long QT syndrome; I10 Essential (primary) hypertension; E78.5 Hyperlipidemia, unspecified; J44.9 Chronic obstructive pulmonary disease, unspecified; I25.2 Old myocardial infarction; F32.9 Major depressive disorder, single episode, unspecified; N40.1 Benign prostatic hyperplasia with lower urinary tract symptoms; Z51.81 Encounter for therapeutic drug level monitoring; Z79.899 Other long term (current) drug therapy; Z79.82 Long term (current) use of aspirin; Z83.3 Family history of diabetes mellitus; Z82.3 Family history of stroke; Z82.49 Family history of ischemic heart disease and other diseases of the circulatory system

== ENCOUNTER 2018-11-05 13:06 | Inpatient (IN) ==
--- OUTSIDE RECORDS SUMMARY | 2018-11-05 13:12 | External Medical Summary | Continuity of Care Document ---
:1935 Author Name Miguel German, Provider Address Unavailable Unavailable , Care Team Providers Name Role Phone Unavailable Unavailable Unavailable MERRY MARCELINO Unavailable Unavailable Problems Hypotension (458.9) (I95.9) Hematuria (599.70) (R31.9) Dementia (294.20) (F03.90) Emphysema NEC (492.8) (J43.8) Esophageal reflux (530.81) (K21.9) Phimosis (605) (N47.1) Hypertension (401.9) (I10) Dyslipidemia (272.4) (E78.5) CAD (coronary artery disease), unga coronary artery (414.0 1) (I25.10) Allergies and Adverse Reactions Bee sting (Allergy) Medications Augmentin 875-125 MG TABS; TAKE 1 TABLET EVERY 12 HOURS OTTONIEL Ervin M.D. Refills: 0 Budesonide 0.5 MG/2ML Inhalation Suspens ion; USE 1 UNIT DOSE VIA NEBULIZER TWO TIMES A DAY , M.D. Refills: 0 Finasteride 5 MG Oral Tablet; TAKE 1 TABLET DAILY. , M.D. Quantity: 90 Refills: 3 Tamsulosin HCl - 0.4 MG Oral Capsule; TAKE 1 CAPSULE Daily , M.D. Quantity: 90 Refills: 3 Albuterol-Ipratropium 2.5-0.5 MG/3ML FERNANDO N; USE 1 UNIT DOSE IN NEBULIZER 4 TIMES DAILY. , M.D. Refills: 0 Aspirin 81 MG TABS; TAKE 1 TABLET DAILY. , M.D. Refills: 0 Donepezil HCl - 5 MG Oral Tablet; TAKE 1 TABLET AT BEDTIME. , M.D. Refills: 0 Isosorbide Mononitrate ER 30 MG Oral Tab let Extended Release 24 Hour; TAKE 1 TABLET DAILY. , M.D. Quantity: 90 Refills: 3 Lisinopril 10 MG Oral Tablet; TAKE 1 TABLET DAILY. , M.D. Quantity: 90 Refills: 3 Metoprolol Tartrate 50 MG Oral Tablet; TAKE 1/2 TABLET TWICE DAILY. , M.D. Refills: 0 Simvastatin 80 MG Oral Tablet; TAKE 1 TABLET DAILY DIRECT ED. , M.D. Quantity: 90 Refills: 3 Procedures Procedures not documented Immunizations Immunizations not documented Family History Unknown Family Member Family history of diabetes mellitus (V18.0) Status: Active Comments: Family History (Z83.3) Family history of cardiac disorder (V17.49) Status: Active Comments: Family History (Z82.49) Family history of malignant neoplasm (V16.9) Status: Active Comments: Family History (Z80.9) Family history of cerebrovascular accident Status: Active Comments: Family History (V17.1) (Z82.3) Mother No pertinent family history (V49.89) (Z78.9) Status: Active Social History - Smoking Status Former smoker Plan of Treatment Planned Observations Planned Goals not documented Results No Known Results Results not documented
[2018-11-05] MEDS ORDERED: SODIUM CHLORIDE 0.9% 1000ML 1,000 ML IV ONE ×2 (13:14→15:01)
--- NOTE | 2018-11-05 13:17 | Emergency Department Note ---
Entered by Kenzie Ku acting as a scribe for Blair Theodore DO History of Present Illness General Chief complaint: Hypotension Stated complaint: unresponsive[facility] Source: EMS Mode of arrival: EMS Limitations: altered mental status History of Present Illness Provider complaint: unresponsive Onset (ago): hour(s) (12) Location: head Pain Consistency: + other (episode) Quality: + other (unresponsive) Associated symptoms: + other (hypotensive) The patient is an 83 year old male who presents to the Emergency Room via EMS from [facility] after being found unresponsive. EMS reports that the patient has been unresponsive since around 0100 this morning. EMS explains that the patient was started on PO Levaquin today for a recently diagnosed UTI. Per EMS, the patient has a history of dementia. They also state that the patient has been hypotensive. HPI is limited secondary to AMS. Home Medications Home Medications Medication Instructions Recorded Confirmed Type acetaminophen 650 mg AZ Q6H PRN 11/05/18 11/05/18 History acetaminophen [Tylenol] 650 mg PO Q6H PRN 11/05/18 11/05/18 History bisacodyl [Dulcolax (bisacodyl)] 10 mg AZ DAILY PRN 11/05/18 11/05/18 History ergocalciferol (vitamin D2) 50,000 unit PO MONTHLY 11/05/18 11/05/18 History [Vitamin D2] erythromycin 5 mg OPB BID 11/05/18 11/05/18 History ipratropium-albuterol 3 ml INHALATION Q8H 11/05/18 11/05/18 History ketoconazole 2 % TOPICAL BID 11/05/18 11/05/18 History ketoconazole 2 % TOPICAL BID 11/05/18 11/05/18 History levofloxacin [Levaquin] 500 mg PO QAM 11/05/18 11/05/18 History magnesium hydroxide [Milk of 30 ml PO QAM PRN 11/05/18 11/05/18 History Magnesia] terbinafine HCl [Lamisil AT] 1 applic TOPICAL HS 11/05/18 11/05/18 History Allergies Allergy/AdvReac Type Severity Reaction Status Date / Time bee venom protein (honey bee) Allergy Unknown . 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) Hyperlipidemia (Chronic) PAF (paroxysmal atrial fibrillation) (Chronic) Neurogenic bladder (Chronic) Fecal incontinence (Chronic) Surgical History Surgical history unknown (Chronic) Family History Other Family history unknown Social History Preferred Language: Sinhala 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 Beliefs That Will Affect Care: None Current Living Situation: [facility] Current Living Situation Comment: [facility] current occupational status: retired Other Information That Helps Us Care for You: No Feels Safe at Home: Yes Smoking Status: Former smoker Tobacco Type: cigarettes Do You Dip or Chew Tobac co: No Smoking End Date: 2013 Second Hand Exposure: No Tobacco Cessation Education Requested by Patient: No Hx Alcohol Use: No Hx Substance Use: No Review of Systems Other (HPI and ROS are both limited secondary to AMS.) Physical Exam Vital Signs Vital Signs - 24 hr 11/05/18 13:13 11/05/18 13:15 11/05/18 13:30 Temperature 36.6 C Temperature Source Oral Sepsis Recent Fever Within 48 Hours No Sepsis Action Taken by Nursing No Action Required Pulse Rate 72 72 68 Pulse Rate from SpO2 Sensor 71 Respiratory Rate 7 L 15 17 Respiratory Effort / Characteristics Respiratory Depth Normal Respiratory Pattern Regular Blood Pressure 87/55 L 87/55 L Blood Pressure Mean 65 65 Pulse Oximetry 86 L Oxygen Delivery Method Nasal Cannula Oxygen Flow Rate 11/05/18 13:31 11/05/18 13:47 11/05/18 13:53 Temperature Temperature Source Sepsis Recent Fever Within 48 Hours Sepsis Action Taken by Nursing Pulse Rate 68 71 Pulse Rate from SpO2 Sensor 70 69 70 Respiratory Rate 24 18 20 Respiratory Effort / Characteristics Respiratory Depth Respiratory Pattern Blood Pressure 92/60 L 78/51 L 92/58 L Blood Pressure Mean 70 60 69 Pulse Oximetry 77 L 97 Oxygen Delivery Method Nasal Cannula Oxygen Flow Rate 2 11/05/18 13:54 11/05/18 14:00 11/05/18 14:01 Temperature Temperature Source Sepsis Recent Fever Within 48 Hours Sepsis Action Taken by Nursing Pulse Rate 68 67 Pulse Rate from SpO2 Sensor 70 67 67 Respiratory Rate 18 17 14 Respiratory Effort / Characteristics Respiratory Depth Respiratory Pattern Blood Pressure 90/58 L Blood Pressure Mean 68 Pulse Oximetry 98 95 Oxygen Delivery Method Oxygen Flow Rate 11/05/18 14:26 11/05/18 14:27 11/05/18 14:30 Temperature Temperature Source Sepsis Recent Fever Within 48 Hours Sepsis Action Taken by Nursing Pulse Rate 77 81 76 Pulse Rate from SpO2 Sensor Respiratory Rate 17 17 17 Respiratory Effort / Characteristics Respiratory Depth Respiratory Pattern Blood Pressure 101/64 Blood Pressure Mean 76 Pulse Oximetry Oxygen Delivery Method Oxygen Flow Rate 11/05/18 14:45 11/05/18 14:58 11/05/18 15:00 Temperature Temperature Source Sepsis Recent Fever Within 48 Hours Sepsis Action Taken by Nursing Pulse Rate 86 77 80 Pulse Rate from SpO2 Sensor 78 76 74 Respiratory Rate 15 19 17 Respiratory Effort / Characteristics Respiratory Depth Respiratory Pattern Blood Pressure 116/62 Blood Pressure Mean 80 Pulse Oximetry 94 97 96 Oxygen Delivery Method Oxygen Flow Rate 11/05/18 15:01 11/05/18 15:15 11/05/18 15:16 Temperature Temperature Source Sepsis Recent Fever Within 48 Hours Sepsis Action Taken by Nursing Pulse Rate 101 H 73 72 Pulse Rate from SpO2 Sensor 76 74 74 Respiratory Rate 18 23 15 Respiratory Effort / Characteristics Respiratory Depth Respiratory Pattern Blood Pressure 95/65 L 101/62 Blood Pressure Mean 75 75 Pulse Oximetry 96 99 Oxygen Delivery Method Oxygen Flow Rate 11/05/18 15:30 11/05/18 15:32 11/05/18 15:33 Temperature Temperature Source Sepsis Recent Fever Within 48 Hours Sepsis Action Taken by Nursing Pulse Rate 75 81 90 Pulse Rate from SpO2 Sensor 77 73 77 Respiratory Rate 21 18 25 H Respiratory Effort / Characteristics Respiratory Depth Respiratory Pattern Blood Pressure 96/53 L Blood Pressure Mean 67 Pulse Oximetry 98 99 95 Oxygen Delivery Method Oxygen Flow Rate 11/05/18 15:40 11/05/18 15:45 Temperature Temperature Source Sepsis Recent Fever Within 48 Hours Sepsis Action Taken by Nursing Pulse Rate 75 Pulse Rate from SpO2 Sensor 75 Respiratory Rate 24 Respiratory Effort / Characteristics Spontaneous Respiratory Depth Normal Respiratory Pattern Regular Blood Pressure Blood Pressure Mean Pulse Oximetry 99 Oxygen Delivery Method Nasal Cannula Oxygen Flow Rate 2 GENERAL: Patient is listless. He does respond to loud verbal and painful stimu li with looking around but does not answer questions or follow commands appropriately. EYES: The conjunctivae are injected bilaterally. The pupils are constricted and minimally reactive to light bilaterally. EARS, NOSE, MOUTH AND THROAT: The nose is without any evidence of any deformity. Mucous members are dry. NECK: The neck is nontender and supple. RESPIRATORY: Shallow respirations were noted. There were diminished breath sounds noted throughout. CARDIOVASCULAR: Heart sounds were distant. There is no definite murmur noted to auscultation. GASTROINTESTINAL: The abdomen is soft and diffusely tender. There is no guarding or rigidity. MUSCULOSKELETAL/EXTREMITIES: There is no evidence of gross deformity full range of motion is noted in the hips and shoulders. Muscles are very rigid. SKIN: There is no obvious evidence of any rash. Chronic venous stasis changes are noted in both legs. NEUROLOGIC: Patient will not answer questions or follow commands. It is difficult to ascertain orientation at this time. Course 1307: Past medical records reviewed. The patient was evaluated in room C9. A limited history and physical examination was performed. 1352: I checked on the patient. 1459: I reviewed the patient's case with Ericka Bangura PA-C - [facility] Hospitalist. She and Dr. Ward will evaluate the patient for further managemen t. Administered Medications Albuterol (Duoneb) 3 ml INH Q8R PRINCESS Stop: 12/05/18 17:59 Last Admin: 11/06/18 14:40 Dose: 3 ml Documented by: [id number] Admin: 11/06/18 07:04 Dose: 3 ml Documented by: [id number] Admin: 11/05/18 23:10 Dose: 3 ml Documented by: [id number] Admin: 11/05/18 20:08 Dose: Not Given Documented by: [id number] Erythromycin (Erythromycin) 1 appln OPB BID PRINCESS Stop: 11/09/18 23:59 Last Admin: 11/06/18 08:33 Dose: 1 appln Documented by: [id number] Admin: 11/05/18 20:51 Dose: 1 appln Documented by: [id number] Heparin Sodium (Porcine) (Heparin Sodium (Porcine)) 5,000 units SQ Q8 PRINCESS Stop: 12/05/18 21:59 Last Admin: 11/06/18 13:32 Dose: 5,000 units Documented by: [id number] Cosigned by: [id number] Admin: 11/06/18 05:29 Dose: 5,000 units Documented by: [id number] Cosigned by: [id number] Admin: 11/05/18 20:57 Dose: 5,000 units Documented by: [id number] Cosigned by: [id number] Sodium Chloride (Nss 1000ml) 1,000 mls @ 60 mls/hr IV .[id number] PRINCESS Stop: 12/05/18 18:14 Last Admin: 11/06/18 11:10 Dose: 60 mls/hr Documented by: [id number] Infusion: 11/06/18 11:05 Dose: 60 mls/hr Documented by: [id number] Admin: 11/05/18 18:24 Dose: 60 mls/hr Documented by: [id number] Piperacillin Sod/Tazobactam (Sod 3.375 gm/ Dextrose) 115 mls @ 28.75 mls/hr IV Q8H PRINCESS; Protocol Stop: 11/19/18 19:59 Last Infusion: 11/06/18 15:49 Dose: 0 mls/hr Documented by: [id number] Admin: 11/06/18 11:58 Dose: 28.8 mls/hr Documented by: [id number] Infusion: 11/06/18 07:45 Dose: 0 mls/hr Documented by: [id number] Admin: 11/06/18 03:44 Dose: 28.8 mls/hr Documented by: [id number] Infusion: 11/06/18 00:36 Dose: 0 mls/hr Documented by: [id number] Admin: 11/05/18 20:34 Dose: 28.8 mls/hr Documented by: [id number] Ketoconazole (Nizoral 2%) 1 appln EXT BID PRINCESS Stop: 11/15/18 20:59 Last Admin: 11/06/18 08:32 Dose: 1 appln Documented by: [id number] Admin: 11/05/18 20:50 Dose: 1 appln Documented by: [id number] Terbinafine HCl (Lamisil At) 1 appln EXT HS PRINCESS Stop: 12/05/18 20:59 Last Admin: 11/05/18 20:52 Dose: 1 appln Documented by: [id number] Discontinued Medications Sodium Chloride (Nss 1000ml) 1,000 mls @ 999 mls/hr IV .Q1H1M ONE Stop: 11/05/18 14:14 Last Infusion: 11/05/18 14:29 Dose: 0 mls/hr Documented by: [id number] Admin: 11/05/18 13:52 Dose: 999 mls/hr Documented by: [id number] Piperacillin Sod/Tazobactam Sod (Zosyn) 4.5 gm in 120 mls @ 240 mls/hr IV NOW ONE Stop: 11/05/18 14:36 Last Infusion: 11/05/18 15:00 Dose: 0 mls/hr Documented by: [id number] Admin: 11/05/18 14:25 Dose: 240 mls/hr Documented by: [id number] Sodium Chloride (Nss 1000ml) 1,000 mls @ 999 mls/hr IV .Q1H1M ONE Stop: 11/05/18 16:01 Last Infusion: 11/05/18 16:31 Dose: 0 mls/hr Documented by: [id number] Admin: 11/05/18 15:22 Dose: 999 mls/hr Documented by: [id number] Vancomycin HCl 1,500 mg/ (Sodium Chloride) 530 mls @ 200 mls/hr IV ONE ONE Stop: 11/05/18 20:38 Last Infusion: 11/05/18 20:54 Dose: 0 mls/hr Documented by: [id number] Admin: 11/05/18 18:13 Dose: 200 mls/hr Documented by: [id number] Medical Decision Making Differential Diagnosis Differential diagnoses includes but is not limited to toxic, metabolic, infectious, traumatic, cardiac, neurologic, hematologic, psychiatric and inflammatory etiologies. Medical Records Attestation: I reviewed the patient's medical records. Home Medications Current Medication List: was personally reviewed by me Laboratory Data Attestation: I reviewed the patient's lab results. Result diagrams: 11/06/18 01:25 11/06/18 01:25 Lab Results 11/05/18 11/05/18 11/05/18 Range/Units 13:20 13:20 13:20 WBC 20.01 H (4.8-10.8) K/uL RBC 3.91 L (4.7-6.1) M/uL Hgb 11.7 L (14.0-18.0) g/dL Hct 36.6 L (42-52) % MCV 93.6 (80-100) fL MCH 29.9 (25-34) pg MCHC 32.0 (32-36) g/dL RDW Std Deviation 51.4 H (36.4-46.3) fL RDW Coeff of Abimbola 15.2 H (11.5-14.5) % Plt Count 128 L (130-400) K/uL MPV 12.3 H (7.4-10.4) fL Immature Gran % (Auto) 0.5 % Neut % (Auto) 88.4 % Lymph % (Auto) 4.7 % [place] % (Auto) 6.3 % Eos % (Auto) 0.0 % Baso % (Auto) 0.1 % Immature Gran # (Auto) 0.11 H (0.00-0.02) K/uL Neut # (Auto) 17.66 H (1.4-6.5) K/uL Lymph # (Auto) 0.95 L (1.2-3.4) K/uL [place] # (Auto) 1.27 H (0.11-0.59) K/uL Eos # (Auto) 0.00 (0-0.5) K/uL Baso # (Auto) 0.02 (0-0.2) K/uL Platelet Estimate Decreased L (Normal) ESR 23 H (0-14) mm/hr PT 12.3 H (9.0-12.0) Seconds INR 1.2 H (0.9-1.1) APTT 35.0 H (21.0-31.0) Seconds PTT Ratio 1.3 VBG pH (7.36-7.41) VBG pCO2 (38-50) mmHg VBG pO2 mmHg VBG HCO3 mmol/L VBG O2 Saturation % VBG Base Excess mEq/L Barometric Pressure mm/Hg Sodium (136-145) mmol/L Potassium (3.5-5.1) mmol/L Chloride (98-107) mmol/L Carbon Dioxide (21-32) mmol/L Anion Gap (3-11) BUN (7-18) mg/dl Creatinine (0.6-1.4) mg/dl Est Cr Clr Drug Dosing ml/min Est GFR ( Amer) Est GFR (Non-Af Amer) BUN/Creatinine Ratio (10-20) Glucose (70-99) mg/dl POC Lactic Acid Jose (0.90-1.70) mmol/L Lactate (0.4-2.0) mmol/L Calcium (8.5-10.1) mg/dl Magnesium (1.8-2.4) mg/dl Total Bilirubin (0.2-1) mg/dl AST (15-37) U/L ALT (12-78) U/L Alkaline Phosphatase (45-117) U/L Total Creatine Kinase (39-308) U/L CK-MB (CK-2) (0.5-3.6) ng/ml CK/CKMB % Calc (0-3.0) Troponin I (0-0.045) ng/ml C-Reactive Protein (0-0.29) mg/dl Total Protein (6.4-8.2) gm/dl Albumin (3.4-5.0) gm/dl Globulin (2.5-4.0) gm/dl Albumin/Globulin Ratio (0.9-2) Procalcitonin (0-0.5) ng/ml Urine Color Urine Appearance (Clear) Urine pH (4.5-7.5) Ur Specific [place] (1.000-1.030) Urine Protein (Negative) Urine Glucose (UA) (Negative) Urine Ketones (Negative) Urine Blood (Negative) Urine Nitrite (Negative) Urine Bilirubin (Negative) Urine Urobilinogen (Negative) Ur Leukocyte Esterase (Negative) Urine WBC (Auto) (0-5) /hpf Urine RBC (Auto) (0-4) /hpf U Hyaline Cast (Auto) (0-5) /lpf U Epithel Cells (Auto) (0-5) /lpf Urine Bacteria (Auto) (Negative) Ur Renal Epithelial Cell Uric Acid Crystals (None Prsent) Amorphous Sediment (None Prsent) 11/05/18 11/05/18 11/05/18 Range/Units 13:20 13:27 13:44 WBC (4.8-10.8) K/uL RBC (4.7-6.1) M/uL Hgb (14.0-18.0) g/dL Hct (42-52) % MCV (80-100) fL MCH (25-34) pg MCHC (32-36) g/dL RDW Std Deviation (36.4-46.3) fL RDW Coeff of Abimbola (11.5-14.5) % Plt Count (130-400) K/uL MPV (7.4-10.4) fL Immature Gran % (Auto) % Neut % (Auto) % Lymph % (Auto) % [place] % (Auto) % Eos % (Auto) % Baso % (Auto) % Immature Gran # (Auto) (0.00-0.02) K/uL Neut # (Auto) (1.4-6.5) K/uL Lymph # (Auto) (1.2-3.4) K/uL [place] # (Auto) (0.11-0.59) K/uL Eos # (Auto) (0-0.5) K/uL Baso # (Auto) (0-0.2) K/uL Platelet Estimate (Normal) ESR (0-14) mm/hr PT (9.0-12.0) Seconds INR (0.9-1.1) APTT (21.0-31.0) Seconds PTT Ratio VBG pH (7.36-7.41) VBG pCO2 (38-50) mmHg VBG pO2 mmHg VBG HCO3 mmol/L VBG O2 Saturation % VBG Base Excess mEq/L Barometric Pressure mm/Hg Sodium 143 (136-145) mmol/L Potassium 4.4 (3.5-5.1) mmol/L Chloride 110 H (98-107) mmol/L Carbon Dioxide 27 (21-32) mmol/L Anion Gap 6.0 (3-11) BUN 26 H (7-18) mg/dl Creatinine 1.72 H (0.6-1.4) mg/dl Est Cr Clr Drug Dosing 29.8 ml/min Est GFR ( Amer) 42.3 Est GFR (Non-Af Amer) 36.5 BUN/Creatinine Ratio 15.0 (10-20) Glucose 94 (70-99) mg/dl POC Lactic Acid Jose 2.05 H (0.90-1.70) mmol/L Lactate 2.7 H* (0.4-2.0) mmol/L Calcium 8.0 L (8.5-10.1) mg/dl Magnesium 2.1 (1.8-2.4) mg/dl Total Bilirubin 0.4 (0.2-1) mg/dl AST 87 H (15-37) U/L ALT 99 H (12-78) U/L Alkaline Phosphatase 128 H (45-117) U/L Total Creatine Kinase 342 H (39-308) U/L CK-MB (CK-2) 2.8 (0.5-3.6) ng/ml CK/CKMB % Calc 0.8 (0-3.0) Troponin I 0.131 H* (0-0.045) ng/ml C-Reactive Protein 7.97 H (0-0.29) mg/dl Total Protein 6.0 L (6.4-8.2) gm/dl Albumin 2.3 L (3.4-5.0) gm/dl Globulin 3.7 (2.5-4.0) gm/dl Albumin/Globulin Ratio 0.6 L (0.9-2) Procalcitonin (0-0.5) ng/ml Urine Color Urine Appearance (Clear) Urine pH (4.5-7.5) Ur Specific [place] (1.000-1.030) Urine Protein (Negative) Urine Glucose (UA) (Negative) Urine Ketones (Negative) Urine Blood (Negative) Urine Nitrite (Negative) Urine Bilirubin (Negative) Urine Urobilinogen (Negative) Ur Leukocyte Esterase (Negative) Urine WBC (Auto) (0-5) /hpf Urine RBC (Auto) (0-4) /hpf U Hyaline Cast (Auto) (0-5) /lpf U Epithel Cells (Auto) (0-5) /lpf Urine Bacteria (Auto) (Negative) Ur Renal Epithelial Cell Uric Acid Crystals (None Prsent) Amorphous Sediment (None Prsent) 11/05/18 11/05/18 11/05/18 Range/Units 13:44 13:44 15:40 WBC (4.8-10.8) K/uL RBC (4.7-6.1) M/uL Hgb (14.0-18.0) g/dL Hct (42-52) % MCV (80-100) fL MCH (25-34) pg MCHC (32-36) g/dL RDW Std Deviation (36.4-46.3) fL RDW Coeff of Abimbola (11.5-14.5) % Plt Count (130-400) K/uL MPV (7.4-10.4) fL Immature Gran % (Auto) % Neut % (Auto) % Lymph % (Auto) % [place] % (Auto) % Eos % (Auto) % Baso % (Auto) % Immature Gran # (Auto) (0.00-0.02) K/uL Neut # (Auto) (1.4-6.5) K/uL Lymph # (Auto) (1.2-3.4) K/uL [place] # (Auto) (0.11-0.59) K/uL Eos # (Auto) (0-0.5) K/uL Baso # (Auto) (0-0.2) K/uL Platelet Estimate (Normal) ESR (0-14) mm/hr PT (9.0-12.0) Seconds INR (0.9-1.1) APTT (21.0-31.0) Seconds PTT Ratio VBG pH 7.32 L (7.36-7.41) VBG pCO2 51 H (38-50) mmHg VBG pO2 24 mmHg VBG HCO3 26 mmol/L VBG O2 Saturation < 60.0 % VBG Base Excess -1.1 mEq/L Barometric Pressure 732.2 mm/Hg Sodium (136-145) mmol/L Potassium (3.5-5.1) mmol/L Chloride (98-107) mmol/L Carbon Dioxide (21-32) mmol/L Anion Gap (3-11) BUN (7-18) mg/dl Creatinine (0.6-1.4) mg/dl Est Cr Clr Drug Dosing ml/min Est GFR ( Amer) Est GFR (Non-Af Amer) BUN/Creatinine Ratio (10-20) Glucose (70-99) mg/dl POC Lactic Acid Jose (0.90-1.70) mmol/L Lactate (0.4-2.0) mmol/L Calcium (8.5-10.1) mg/dl Magnesium (1.8-2.4) mg/dl Total Bilirubin (0.2-1) mg/dl AST (15-37) U/L ALT (12-78) U/L Alkaline Phosphatase (45-117) U/L Total Creatine Kinase (39-308) U/L CK-MB (CK-2) (0.5-3.6) ng/ml CK/CKMB % Calc (0-3.0) Troponin I (0-0.045) ng/ml C-Reactive Protein (0-0.29) mg/dl Total Protein (6.4-8.2) gm/dl Albumin (3.4-5.0) gm/dl Globulin (2.5-4.0) gm/dl Albumin/Globulin Ratio (0.9-2) Procalcitonin > 200.00 H (0-0.5) ng/ml Urine Color Dark Yellow Urine Appearance Turbid A (Clear) Urine pH 5.0 (4.5-7.5) Ur Specific [place] 1.021 (1.000-1.030) Urine Protein 2+ H (Negative) Urine Glucose (UA) Negative (Negative) Urine Ketones Trace H (Negative) Urine Blood 2+ H (Negative) Urine Nitrite Negative (Negative) Urine Bilirubin Negative (Negative) Urine Urobilinogen Negative (Negative) Ur Leukocyte Esterase 2+ H (Negative) Urine WBC (Auto) >30 H (0-5) /hpf Urine RBC (Auto) 5-10 H (0-4) /hpf U Hyaline Cast (Auto) 0 (0-5) /lpf U Epithel Cells (Auto) >30 H (0-5) /lpf Urine Bacteria (Auto) Negative (Negative) Ur Renal Epithelial Cell Not Reportable Uric Acid Crystals Present A (None Prsent) Amorphous Sediment Present A (None Prsent) Imaging Data Radiologist's Impression: Radiology results as stated below per my review and the radiologist's interpretation: XR chest 1V portable CLINICAL HISTORY: Sepsis COMPARISON STUDY: 10/31/2017 FINDINGS: The heart is mildly enlarged. There is aortic tortuosity. There are progressive basilar interstitial opacities. Diagnostic considerations include progressive interstitial lung disease versus a superimposed acute inflammatory[ process. There are no pleural effusions. There is no overt failure. IMPRESSION: 1. Progressive basilar interstitial opacities. Diagnostic considerations include progressive interstitial lung disease versus a superimposed acute inflammatory process. Clinical and radiographic follow-up is recommended. Electronically signed by: Deon Valadze M.D. 11/05/2018 1:40 PM ECG Data Attestation: I personally reviewed and interpreted this ECG as follows: Indication: altered mental status Rate (beats per minute): 77 Rhythm: normal sinus Findings: no ST depression, no ST elevation and no ectopy Comparison ECG Date: from (02-Nov-2017) Change: no significant change Blood Pressure Blood Pressure Findings: Low blood pressure Blood Pressure Disposition: further management by hospitalist NAN Sood The patient is an 83-year-old male who presented to the emergency department for an evaluation of altered mental status. Most of the history was obtained from the prehospital personnel as well as the long term documentation. The patient had a change in his mental status approximate 1:00 this morning. He was less responsive and was sent to the emergency department for an evaluation. The patient has a presumed urinary tract infection and from his notes may have been started on Levaquin the patient had a high white blood cell count and h ypotension. He was treated as sepsis in the emergency department with IV fluids and IV antibiotics. I discussed the patient's laboratory and radiographic studies with the on-call [facility] hospitalist group. They have agreed to evaluate the patient in the emergency department for further management and disposition. The patient was reevaluated multiple times. His condition slowly improved. Impression & Plan Sepsis, Hypotension, Altered mental status, UTI (urinary tract infection) Discharge Plan Visit Data *Final* Discharge Date/Time: 11/05/18 16:42 Chief Complaint: Hypotension Stated Complaint: unresponsive/ [facility] ED Provider: Blair Theodore Discharge Problem: Sepsis, Hypotension, Altered mental status, UTI (urinary tract infection) Patient Disposition: Admitted As Inpatient Discharge Instructions Interventions: ED Discharge Assessment Last Done: 11/05/18 16:42 Discharge Problem: Sepsis Qualifiers: Sepsis type: sepsis due to unspecified organism Qualified Code(s): A41.9 - Sepsis, unspecified organism Hypotension Qualifiers: Hypotension type: unspecified hypotension type Qualified Code(s): I95.9 - Hypotension, unspecified Altered mental status Qualifiers: Altered mental status type: unspecified Qualified Code(s): R41.82 - Altered mental status, unspecified The scribe's documentation has been prepared under my direction and personally reviewed by me in its entirety. I confirm that the note above accurately reflects all work, treatment, procedures, and medical decision making performed by me.
--- NOTE | 2018-11-05 13:42 | XRay Report ---
XR chest 1V portable CLINICAL HISTORY: Sepsis COMPARISON STUDY: 10/31/2017 FINDINGS: The heart is mildly enlarged. There is aortic tortuosity. There are progressive basilar int erstitial opacities. Diagnostic considerations include progressive interstitial lung disease versus a superimposed acute inflammatory[ process. There are no pleural effusions. There is no overt failure. IMPRESSION: 1. Progressive basilar interstitial opacities. Diagnostic considerations include progressive intersti tial lung disease versus a superimposed acute inflammatory process. Clinical and radiographic follow- up is recommended. Electronically signed by: Deon Valadez M.D. 11/05/2018 1:40 PM
[2018-11-05 13:47] LABS: INR 1.2 (0.9-1.1); Partial Thromboplastin Ratio 1.3; Prothrombin Time 12.3 Seconds (9.0-12.0)
[2018-11-05 13:52] LABS: Albumin Level 2.3 gm/dl (3.4-5.0); Creatinine Clr Calc Pharmacy 29.8 ml/min; Est GFR (African American) 42.3; Est GFR (Non-African American) 36.5; Magnesium 2.1 mg/dl (1.8-2.4); Potassium 4.4 mmol/L (3.5-5.1)
[2018-11-05 13:57] LABS: Base Excess VBG -1.1 mEq/L; HCO3 VBG 26 mmol/L; PCO2 VBG 51 mmHg (38-50); PO2 VBG 24 mmHg; pH VBG 7.32 (7.36-7.41)
[2018-11-05 13:59] LABS: Oxygen Saturation VBG < 60.0 %
[2018-11-05 13:59] LABS: Albumin Globulin Ratio 0.6 (0.9-2); Bilirubin,Total 0.4 mg/dl (0.2-1); C Reactive Protein 7.97 mg/dl (0-0.29); Creatine Kinase MB 2.8 ng/ml (0.5-3.6); Globulin 3.7 gm/dl (2.5-4.0); Troponin I 0.131 ng/ml (0-0.045)
[2018-11-05 14:02] LABS: Platelet Count 128 K/uL (130-400)
[2018-11-05 14:03] LABS: Basophils # (auto) 0.02 K/uL (0-0.2); Basophils % (auto) 0.1 %; Hematocrit (blood only) 36.6 % (42-52); Hemoglobin 11.7 g/dL (14.0-18.0); Immature Granulocytes # (auto) 0.11 K/uL (0.00-0.02); Immature Granulocytes % (auto) 0.5 %; Lymphocytes # (auto) 0.95 K/uL (1.2-3.4); Lymphocytes % (auto) 4.7 %; Mean Corpuscular Volume 93.6 fL (80-100); Mean Platelet Volume 12.3 fL (7.4-10.4); Monocytes # (auto) 1.27 K/uL (0.11-0.59); Monocytes % (auto) 6.3 %; Neutrophils # (auto) 17.66 K/uL (1.4-6.5); Neutrophils % (auto) 88.4 %; Platelet Estimate Decreased (Normal); RDW Coefficient of Variation 15.2 % (11.5-14.5); RDW Standard Deviation 51.4 fL (36.4-46.3); Red Blood Count 3.91 M/uL (4.7-6.1); White Blood Count 20.01 K/uL (4.8-10.8)
[2018-11-05] MEDS ORDERED: PIPERACILL/TAZOBAC CONSULT ACTIVE PRN (14:07)
[2018-11-05] MEDS ORDERED: PIPERACILLIN/TAZOBACTAM 4.5 GM/120 ML BAG IV ONE (14:07)
--- NOTE | 2018-11-05 14:35 | CT Scan Report ---
CT head/brain wo con CLINICAL HISTORY: Altered mental status. COMPARISON STUDY: 10/31/2017 TECHNIQUE: Axial CT of the brain is performed from the vertex to the skull base. IV contrast was not administered for this examination. A dose lowering technique was utilized adhering to the principles of ALARA. CT DOSE: FINDINGS: No intra or extra-axial mass lesions are visualized. There is no CT evidence of acute cortical infarc tion. There is no evidence of midline shift. There is no acute hemorrhage. No calvarial fractures ar e visualized. There are patchy white matter hypodensities likely on a small vessel basis. There are few scattered c hronic lacunar infarcts. There is no evidence of pathologic ventricular dilatation. There is no evidence of acute sinusitis IMPRESSION: No acute intracranial findings Electronically signed by: Deon Valadez M.D. 11/05/2018 2:33 PM
--- NOTE | 2018-11-05 14:43 | CT Scan Report ---
CT SCAN OF THE ABDOMEN AND PELVIS WITHOUT CONTRAST CLINICAL HISTORY: hypotension UNRESPONSIVE PATIENT COMPARISON STUDY: 11/26/2014 TECHNIQUE: CT scan of the abdomen and pelvis was performed from the lung bases to the proximal femurs . Images are reviewed in the axial, sagittal, and coronal planes. IV contrast was not administered fo r this examination. A dose lowering technique was utilized adhering to the principles of ALARA. CT DOSE: 1726.26 mGy.cm FINDINGS: Lower chest: There is severe pulmonary emphysema. Basilar opacities are likely atelectatic. Liver: There are persistent hypodense hepatic lesions, likely representing cysts. Gallbladder: Unremarkable. Spleen: Normal in size and attenuation. Pancreas: Unremarkable. Adrenal glands: Unremarkable. Kidneys: There are multiple large left renal cysts. There is a 5 mm lower pole left renal calculus. T here is a 17 mm right renal cyst. There is no hydronephrosis. Bowel: There are no transition zones indicate bowel obstruction. There is a large amount stool within the rectal vault which measures 97 mm. There is no acute diverticulitis. There are no findings to in dicate acute appendicitis. Peritoneum: There is no intraperitoneal free air or abdominal ascites. Vasculature: Several abdominal aortic aneurysms are visualized, the largest of which measures 59 mm i n AP diameter. There is fusiform dilatation of the common iliac arteries which measure 23 mm on the l eft and 22 mm on the right. Adenopathy: None. Pelvic viscera: There is indwelling Mancini catheter. Skeletal structures: Multiple vertebral body endplate deformities are visualized. IMPRESSION: 1. No evidence of bowel obstruction. No evidence of free air 2. Fecal retention. Large amount stool within the rectum which measures 97 mm in transverse diameter 3. 51 mm abdominal aortic aneurysm 4. No evidence of retroperitoneal hemorrhage 5. Multiple large left renal cysts 6. Nonobstructing 5 mm left renal calculus 7. Emphysema Electronically signed by: Deon Valadez M.D. 11/05/2018 2:42 PM
[2018-11-05 15:54] LABS: Appearance Urine Turbid (Clear); Bacteria Urine Automated Negative (Negative); Bilirubin Urine Negative (Negative); Blood Urine 2+ (Negative); Color Urine Dark Yellow; Epithelial Cell Urine Auto >30 /lpf (0-5); Glucose Urine UA Negative (Negative); Ketones Urine Trace (Negative); Leukocyte Esterase Urine 2+ (Negative); Nitrite Urine Negative (Negative); Protein Urine 2+ (Negative); Specific Gravity Urine 1.021 (1.000-1.030); Urobilinogen Urine Negative (Negative); WBC Urine Automated >30 /hpf (0-5)
--- NOTE | 2018-11-05 16:05 | History & Physical Report ---
Date of Service November 05, 2018 Assessment & Plan (1) Sepsis: (2) Complicated UTI (urinary tract infection): This is an 83-year-old male with a PMH of advanced dementia, COPD, neurogenic bladder with sanchez catheter, chronic diastolic heart failure and paroxysmal A. fib who presents from [facility] with lethargy and decreased urinary output and was found to have sepsis. -Hypotensive at 87/55, receiving IV fluids in ED (2L total) -Leukocytosis of 20k, lactate of 2.7, procalcitonin >200 -UA with evidence of infection in setting of neurogenic bladder. Sanchez catheter replaced. Urine and blood cultures pending -CXR with progressive basilar interstitial opacities, possible superimposed acute inflammatory process -Continue empiric Zosyn, add Vanco -Repeat lactate (3) Acute metabolic encephalopathy: More lethargic today in facility, seems to be improving with fluids -In setting of UTI, LATONIA, possibly PNA -CT head without acute abnormalities -Expect improvement with abx and fluids (4) Acute kidney injury superimposed on chronic kidney disease: Cr elevated at 1.72 (baseline ~1) in setting of poor PO intake, urinary infection -Continue to monitor (5) Elevated troponin: Mild trop elevation of 0.131 -No chest pain. EKG with sinus rhythm with PACs and abberent conduction. Prolonged QTc -Continue trending -Telemetry (6) COPD (chronic obstructive pulmonary disease): Continue neb treatments -Alert in ED, continue to monitor cognitive status closely -VBG with evidence of mild acidosis at 7.3 -No evidence of respiratory distress. Saturation at 95% on 2L NC -Uses 2L NC O2 during the day PRN, 2L HS at facility (7) Chronic diastolic (congestive) heart failure: Appears clinically dry -Continue gentle IV hydration -Not on any diuretics or BP meds (8) PAF (paroxysmal atrial fibrillation): No evidence of A Fib on EKG -Telemetry (9) Dementia: Oriented to person at baseline DVT Ppx: SQ heparin Code status: DNR per [facility] paperwork and discussion with staff member PCP: Clay Dispo: Admitted to telemetry. Discharge planning ordered. Patient seen in collaboration with Dr. Ward. Please see addendum. History of Present Illness Chief Complaint: Lethargy, decreased urinary output Primary Care Provider: [facility] This is an 83-year-old male with a PMH of advanced dementia, COPD, neurogenic bladder with sanchez catheter, chronic diastolic heart failure and paroxysmal A. fib who presents from [facility] with lethargy and decreased urinary output. History obtained from [facility] staff and chart review due to patient's advanced dementia. At baseline, patient is a total assist who is alert and communicative and oriented to person. Since early last evening, patient has been more lethargic and not responding to staff. Also noted to have significantly decreased urinary output and decreased p.o. intake. Noted to be hypotensive at 70/48 and was brought into ED for further evaluation. Was started on oral Levaquin today for concern for UTI. Has also been treated with erythromycin eye ointment for conjunctivitis. Is a DNR [facility] Patient complaining of abdominal pain. Denies headache or chest pain. Remainder of ROS unobtainable due to patient's cognitive state. In ED, patient found to be hypotensive at 87/55 after receiving 750mls NSS en route from EMS. Oxygen saturation are 99% on 2 L nasal cannula. Leukocytosis of 20 K, VBG with with mild acidosis with pH of 7.32. Lactate elevated at 2.7. Procalcitonin >200. Mild troponin elevation at 0.131. CT head negative for acute abnormalities. Chest x-ray with progressive basilar interstitial opacities consistent with progressive interstitial lung disease versus a superimposed acute inflammatory process. CT abd/pelvis with large amount stool within the rectum but no evidence of bowel obstruction. No evidence of free air. Blood and urine cultures obtained. Patient started empirically on Zosyn. Allergies Allergy/AdvReac Type Severity Reaction Status Date / Time bee venom protein (honey bee) Allergy Unknown . Verified 11/05/18 13:52 Home Medications Home Medications Medication Instructions Recorded Confirmed Type acetaminophen 650 mg NE Q6H PRN 11/05/18 11/05/18 History acetaminophen [Tylenol] 650 mg PO Q6H PRN 11/05/18 11/05/18 History bisacodyl [Dulcolax (bisacodyl)] 10 mg NE DAILY PRN 11/05/18 11/05/18 History ergocalciferol (vitamin D2) 50,000 unit PO MONTHLY 11/05/18 11/05/18 History [Vitamin D2] erythromycin 5 mg OPB BID 11/05/18 11/05/18 History ipratropium-albuterol 3 ml INHALATION Q8H 11/05/18 11/05/18 History ketoconazole 2 % TOPICAL BID 11/05/18 11/05/18 History ketoconazole 2 % TOPICAL BID 11/05/18 11/05/18 History levofloxacin [Levaquin] 500 mg PO QAM 11/05/18 11/05/18 History magnesium hydroxide [Milk of 30 ml PO QAM PRN 11/05/18 11/05/18 History Magnesia] terbinafine HCl [Lamisil AT] 1 applic TOPICAL HS 11/05/18 11/05/18 History Past Med/Surg History Medical History Chronic diastolic (congestive) heart failure (Chronic) COPD (chronic obstructive pulmonary disease) (Chronic) BPH (benign prostatic hyperplasia) (Chronic) Depression (Chronic) Ambulatory dysfunction (Chronic) 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) Hyperlipidemia (Chronic) PAF (paroxysmal atrial fibrillation) (Chronic) Neurogenic bladder (Chronic) Fecal incontinence (Chronic) Surgical History Surgical history unknown (Chronic) Family History Other Family history unknown Social History Preferred Language: Italian Communication Ability: Impaired 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 Physical Exam Physical Exam: General Appearance: WD/WN, elderly, frail, pleasantly confused, able to open eyes on command Head: normocephalic, atraumatic Eyes: normal inspection, PERRL, EOMI ENT: hearing grossly normal, pharynx normal (dry mucous membranes) Neck: supple, no JVD, no adenopathy Respiratory/Chest: diminished lung sounds bilaterally. Did not appreciate wheezes, rales or rhonci. No respiratory distress or accessory muscle use Cardiovascular: regular rate, rhythm, no murmur, normal peripheral pulses Abdomen/GI: normal bowel sounds, soft with some fullness in LLQ, non-tender to palpation Extremities/Musculoskelatal: normal inspection, no calf tenderness, normal capillary refill, no pedal edema Neurologic/Psych: lethargic but able to follow a few commands. Normal mood/affect, oriented x person. Moves all 4 extremities spontaneously Skin: normal color, warm/dry. + Pressure ulcer on sacrum with dressing. Erythema of heels, no open skin noted Results & Data Vital Signs (Past 12 Hours) Vital Signs Temp Pulse Resp BP Pulse Ox 11/05/18 15:32 81 18 96/53 L 99 11/05/18 15:30 75 21 98 11/05/18 15:16 72 15 101/62 99 11/05/18 15:15 73 23 96 11/05/18 15:01 101 H 18 95/65 L 11/05/18 15:00 80 17 96 11/05/18 14:58 77 19 116/62 97 11/05/18 14:45 86 15 94 11/05/18 14:30 76 17 11/05/18 14:27 81 17 11/05/18 14:26 77 17 101/64 11/05/18 14:01 67 14 90/58 L 95 11/05/18 14:00 68 17 98 11/05/18 13:54 18 11/05/18 13:53 20 92/58 L 97 11/05/18 13:47 71 18 78/51 L 11/05/18 13:31 68 24 92/60 L 77 L 11/05/18 13:30 68 17 86 L 11/05/18 13:15 36.6 C 72 15 87/55 L 11/05/18 13:13 72 7 L 87/55 L Laboratory Results Short CBC 11/05/18 Range/Units 13:20 WBC 20.01 H (4.8-10.8) K/uL Hgb 11.7 L (14.0-18.0) g/dL Hct 36.6 L (42-52) % Plt Count 128 L (130-400) K/uL BMP 11/05/18 13:20 Sodium 143 Potassium 4.4 Chloride 110 H Carbon Dioxide 27 BUN 26 H Creatinine 1.72 H Glucose 94 Calcium 8.0 L Cardiac Enzymes 11/05/18 Range/Units 13:20 Total Creatine Kinase 342 H (39-308) U/L CK-MB (CK-2) 2.8 (0.5-3.6) ng/ml Troponin I 0.131 H* (0-0.045) ng/ml Liver Function 11/05/18 Range/Units 13:20 Total Bilirubin 0.4 (0.2-1) mg/dl AST 87 H (15-37) U/L ALT 99 H (12-78) U/L Alkaline Phosphatase 128 H (45-117) U/L Albumin 2.3 L (3.4-5.0) gm/dl Urine 11/05/18 Range/Units 15:40 Urine Color Dark Yellow Urine Appearance Turbid A (Clear) Urine pH 5.0 (4.5-7.5) Ur Specific [place] 1.021 (1.000-1.030) Urine Protein 2+ H (Negative) Urine Glucose (UA) Negative (Negative) Diagnostic Findings CT head: IMPRESSION: No acute intracranial findings CXR: IMPRESSION: 1. Progressive basilar interstitial opacities. Diagnostic considerations include progressive interstitial lung disease versus a superimposed acute inflammatory process. Clinical and radiographic follow-up is recommended. CT abd/pelvis: IMPRESSION: 1. No evidence of bowel obstruction. No evidence of free air 2. Fecal retention. Large amount stool within the rectum which measures 97 mm in transverse diameter 3. 51 mm abdominal aortic aneurysm 4. No evidence of retroperitoneal hemorrhage 5. Multiple large left renal cysts 6. Nonobstructing 5 mm left renal calculus 7. Emphysema ECG Rhythm: sinus rhythm Additional Comments: SR with PACs with aberrant conduction, prolonged QT Supervising Physician Co-Signing Physician Notes Pt was seen and examined. Agreed with Ericka WEST exam, assessment and plan. 83-year-old male with a PMH of advanced dementia, COPD, neurogenic bladder with sanchez catheter, chronic diastolic heart failure and paroxysmal A. fib presents from [facility] for unresponsive. History obtained from from [facility] staff due to patient advanced dementia. As per staff pt has been very lethargy with low urinary output and poor oral intake. He was starting on oral levaquin for possible UTI. Lab done in the ER showed elevated WBC, lactic acid, procalcitonin and elevated troponin. UA positive for leukocytes and WBC. CT head showed no acute intra cranial abnormality. CXR showed progressive basilar interstitial opacities. Received IV Zosyn in the ER, Will add IV Vanco. Blood cx and urine cx collected in the ER. Elevated troponin mostly due to demand ischemia from sepsis and LATONIA. Will trend troponin and will get an echo in am. Continue gentle hydration. Nurse paged later because pt son was not to happy because pt code status was DNR. Son has not seen his dad for about 15yrs. Called nursing to check if there is an info for POA. No POA contact on nursing chart. One of the nursing document stated that no code. No POLST form found. For now we will change code status to Full CODE until we confirm his code status. Consider Palliative care consult for goal of care if pt worsening. Please Refer to Ericka WEST documentation for other problems. MD Sylvia (1) Sepsis Sepsis type: sepsis due to unspecified organism Qualified Code(s): A41.9 - Sepsis, unspecified organism
[2018-11-05 16:08] LABS: Amorphous Sediment Urine Present (None Prsent); Cast Urine Automated 0 /lpf (0-5); Uric Acid Crystals Urine Present (None Prsent)
[2018-11-05] MEDS ORDERED: ACETAMINOPHEN 325 MG TAB PO PRN (17:21)
[2018-11-05] MEDS ORDERED: MAGNESIUM HYDROXIDE SUSP 30 ML UDC PO PRN (17:21)
[2018-11-05] MEDS ORDERED: BISACODYL 10 MG SUPP PR PRN (17:21)
[2018-11-05] MEDS ORDERED: INSULIN HUMAN REGULAR IV BOLUS 1.5 UNITS in SYRINGE 0 ML IV ONE (17:45)
[2018-11-05] MEDS ORDERED: VANCOMYCIN CONSULT ACTIVE PRN (17:53)
[2018-11-05] MEDS ORDERED: VANCOMYCIN HCL 1,500 MG in SODIUM CHLORIDE 0.9% 500 ML IV ONE (18:00)
[2018-11-05] MEDS: SODIUM CHLORIDE 0.9% 1000ML 1,000 ML IV SCH (18:24)
--- NOTE | 2018-11-05 19:23 | Pharmacy Report ---
Pharmacy Abx Dose Short Note - Date of Service November 05, 2018 - Assessment & Plan Assessment Pharmacy consulted to dose vancomycin and zosyn for sepsis indication. Possible UTI, pneumonia??? 83 year old M resident of [facility]. PMH of COPD, CKD, dementia, neurogenic bladder Day # 1 of antimicrobial therapy. * Pt in LATONIA. Baseline SCR ~1mg/dL * Blood cultures pending * Urine culture pending * MRSA nasal swab pending Plan Vancomycin * Estimated halflife ~24hours, though this is not entirely reliable since pt is in LATONIA. * Loading dose: 1500mg (24mg/kg) * Goal trough level for sepsis : 15 to 20 mcg/mL * Random level ordered for: 11/06/18 with am labs Zosyn * Received 4.5gm x 1 over 30 min in the ER * then 3.375gm (extended interval) q 8 hours for Crcl>20ml/min Pharmacy will continue to follow and will adjust dose/frequency as necessary. Thank you.
[2018-11-05] MEDS: ALBUT/IPRATROP 3MG/0.5MG NEB 3 ML VIAL INH SCH ×2 (20:08→23:10)
[2018-11-05] MEDS: PIPERACILLIN/TAZOBACTAM 3.375 GM in DEXTROSE 5% 100 ML IV SCH (20:34)
[2018-11-05] MEDS: KETOCONAZOLE 2% CR 15 GM TUBE EXT SCH (20:50)
[2018-11-05] MEDS: ERYTHROMYCIN OP OINT 5 MG/GM 3.5 GM TUBE OPB SCH (20:51)
[2018-11-05] MEDS: TERBINAFINE CR 30 GM TUBE EXT SCH (20:52)
[2018-11-05] MEDS: HEPARIN SOD 5,000 UNIT/0.5 ML VIAL SQ SCH (20:57)
[2018-11-06 02:03] LABS: Mean Corpuscular Hgb Conc 31.4 g/dL (32-36); Mean Corpuscular Volume 93.3 fL (80-100); Mean Platelet Volume 12.2 fL (7.4-10.4); Platelet Count 107 K/uL (130-400); RDW Standard Deviation 51.7 fL (36.4-46.3); Red Blood Count 3.75 M/uL (4.7-6.1); White Blood Count 12.31 K/uL (4.8-10.8)
[2018-11-06 02:15] LABS: Albumin Globulin Ratio 0.6 (0.9-2); Albumin Level 2.3 gm/dl (3.4-5.0); BUN Creatinine Ratio 19.7 (10-20); Bilirubin,Total 0.6 mg/dl (0.2-1); Calcium 7.9 mg/dl (8.5-10.1); Creatinine Clr Calc Pharmacy 38.8 ml/min; Est GFR (African American) 58.2; Est GFR (Non-African American) 50.2; Globulin 3.6 gm/dl (2.5-4.0); Potassium 3.6 mmol/L (3.5-5.1); Total Protein 5.9 gm/dl (6.4-8.2); Troponin I 0.145 ng/ml (0-0.045)
[2018-11-06] MEDS: PIPERACILLIN/TAZOBACTAM 3.375 GM in DEXTROSE 5% 100 ML IV SCH ×3 (03:44→21:20)
[2018-11-06] MEDS: HEPARIN SOD 5,000 UNIT/0.5 ML VIAL SQ SCH ×3 (05:29→23:38)
[2018-11-06] MEDS: ALBUT/IPRATROP 3MG/0.5MG NEB 3 ML VIAL INH SCH ×3 (07:04→23:18)
--- NOTE | 2018-11-06 07:42 | Hospitalist Progress Note ---
Date of Service November 06, 2018 Assessment & Plan (1) Sepsis: (2) UTI (urinary tract infection): This is an 83-year-old male with a PMH of advanced dementia, COPD, neurogenic bladder with sanchez catheter, chronic diastolic heart failure and paroxysmal A. fib who presents from [facility] with lethargy and decreased urinary output and was found to have sepsis. -Hypotensive at 87/55, received IV fluids in ED (2L total) . Leukocytosis of 20k, lactate of 2.7, procalcitonin >200---> Trending down -UA with evidence of infection in setting of neurogenic bladder. Sanchez catheter replaced in ED -CXR with progressive basilar interstitial opacities, possible superimposed acute inflammatory process -Continue empiric IV Zosyn, Vancomycin - Day 2 --> Discontinue IV Vancomycin (MRSA - neg) -Follow up blood cx, urine cx (3) Acute metabolic encephalopathy: Lethargy at [facility], improving while in ED --> Continues to improve -In setting of UTI, LATONIA, possibly PNA -CT head without acute abnormalities -Monitor response to rx (4) Acute kidney injury superimposed on chronic kidney disease: Improving -Cr elevated at 1.72 (baseline ~1) in setting of poor PO intake, urinary infection --> Trending down- 1.32 now -Monitor (5) Elevated troponin: Mildly trop elevation of 0.131--> 0.116--> 0.145 -Likely in setting of sepsis/LATONIA. EKG with sinus rhythm with PACs and abberent conduction. . Prolonged QTc - 478 -Echocardiogram ordered (6) COPD (chronic obstructive pulmonary disease): -No signs of exacerbation -Uses 2L NC O2 during the day PRN, 2L HS at facility (7) Chronic diastolic (congestive) heart failure: Appears clinically dry -Continue gentle IV hydration -Not on any diuretics or BP meds (8) PAF (paroxysmal atrial fibrillation): No evidence of A Fib on EKG -Telemetry (9) Dementia: Oriented to person at baseline DVT Ppx: SQ heparin Code status: DNR per [facility] paperwork and discussion with staff member. However son called overnight and wanted him to be full code. I spoke to his friend (Deborah for many years) who recommended to do this discussion with his daughter- Abigail. Called her - unable to reach. Will try again. PCP: Clay Dispo: Medical mx in progress To go back to [facility] once stable Subjective Patient is awake, alert, disoriented x3. Near his baseline. Tolerated diet well today. Denies any new complaints No overnight events Physical Exam Physical Exam: GENERAL-awake, alert, disoriented x3, not in acute distress per LUNGS- Air entry bilaterally decrease. HEART- Regular rate and rhythm. No murmurs ABDOMEN- Soft, non tender, non distended, Bowel sounds heard. EXTREMITIES-no edema NEUROMUSCULAR- Grossly moving all extremities; Unable to evaluate as not cooperative Results & Data Vital Signs (Past 12 Hours) Vital Signs Temp Pulse Pulse Resp BP Pulse Ox 11/06/18 07:29 36.6 C 82 19 110/69 95 11/06/18 07:05 18 94 11/06/18 04:02 36.6 C 72 20 114/66 95 11/05/18 23:57 36.7 C 77 19 90/64 L 93 11/05/18 23:54 78 11/05/18 23:15 77 16 96 (1) Sepsis Sepsis type: sepsis due to unspecified organism Qualified Code(s): A41.9 - Sepsis, unspecified organism
[2018-11-06] MEDS: KETOCONAZOLE 2% CR 15 GM TUBE EXT SCH ×2 (08:32→21:16)
[2018-11-06] MEDS: ERYTHROMYCIN OP OINT 5 MG/GM 3.5 GM TUBE OPB SCH ×2 (08:33→21:16)
[2018-11-06] MEDS: SODIUM CHLORIDE 0.9% 1000ML 1,000 ML IV SCH (11:10)
--- NOTE | 2018-11-06 11:40 | Pharmacy Report ---
Pharmacy Abx Dose Short Note - Date of Service November 06, 2018 - Assessment & Plan Assessment 83 year old M receiving vancomycin/zosyn for treatment of possible sepsis/UTI Day # 2 of antimicrobial therapy. Plan Vancomycin * Random level this morning is 11.9 mcg/mL after a one time loading dose of 1500mg IV (11/05 @1813) * Initiate maintenance dose of 1000 mg IV every 24 hours * Goal trough level : 15 to 20 mcg/mL * Trough or random level ordered for: 11/08/18 @ 5229 Pharmacy will continue to follow and will adjust dose/frequency as necessary. Thank you.
[2018-11-06] MEDS ORDERED: VANCOMYCIN HCL 1,000 MG in SODIUM CHLORIDE 0.9% 250 ML IV SCH (18:00)
[2018-11-06] MEDS: TERBINAFINE CR 30 GM TUBE EXT SCH (21:18)
[2018-11-07] MEDS: SODIUM CHLORIDE 0.9% 1000ML 1,000 ML IV SCH (03:18)
[2018-11-07] MEDS: PIPERACILLIN/TAZOBACTAM 3.375 GM in DEXTROSE 5% 100 ML IV SCH ×2 (03:59→12:03)
[2018-11-07] MEDS: HEPARIN SOD 5,000 UNIT/0.5 ML VIAL SQ SCH ×2 (05:37→14:23)
[2018-11-07 06:25] LABS: Hematocrit (blood only) 33.5 % (42-52); Hemoglobin 10.6 g/dL (14.0-18.0); Mean Corpuscular Hgb Conc 31.6 g/dL (32-36); Mean Corpuscular Volume 93.1 fL (80-100); Mean Platelet Volume 12.2 fL (7.4-10.4); Platelet Count 105 K/uL (130-400); RDW Coefficient of Variation 14.9 % (11.5-14.5); RDW Standard Deviation 50.9 fL (36.4-46.3)
[2018-11-07] MEDS: ALBUT/IPRATROP 3MG/0.5MG NEB 3 ML VIAL INH SCH (06:52)
[2018-11-07 06:53] LABS: Albumin Globulin Ratio 0.6 (0.9-2); Albumin Level 2.2 gm/dl (3.4-5.0); BUN Creatinine Ratio 25.8 (10-20); Bilirubin,Total 0.5 mg/dl (0.2-1); Calcium 7.8 mg/dl (8.5-10.1); Creatinine Clr Calc Pharmacy 57.8 ml/min; Est GFR (African American) 92.5; Est GFR (Non-African American) 79.8; Globulin 3.4 gm/dl (2.5-4.0); Potassium 3.3 mmol/L (3.5-5.1); Total Protein 5.6 gm/dl (6.4-8.2)
[2018-11-07] MEDS ORDERED: POTASSIUM CHLORIDE 20 MEQ TABCR PO STA (07:45)
[2018-11-07] MEDS: KETOCONAZOLE 2% CR 15 GM TUBE EXT SCH (08:30)
[2018-11-07] MEDS: ERYTHROMYCIN OP OINT 5 MG/GM 3.5 GM TUBE OPB SCH (08:30)
--- NOTE | 2018-11-07 11:55 | Hospitalist Progress Note ---
Date of Service November 07, 2018 Assessment & Plan (1) Sepsis: (2) UTI (urinary tract infection): This is an 83-year-old male with a PMH of advanced dementia, COPD, neurogenic bladder with sanchez catheter, chronic diastolic heart failure and paroxysmal A. fib who presents from [facility] with lethargy and decreased urinary output and was found to have sepsis. -Hypotensive at 87/55, received IV fluids in ED (2L total) . Leukocytosis of 20k, lactate of 2.7, procalcitonin >200---> Trending down -UA with evidence of infection in setting of neurogenic bladder. Sanchez catheter replaced on 11/05/18. -CXR with progressive basilar interstitial opacities, possible superimposed acute inflammatory process -Received Empiric IV Zosyn, Vancomycin. Discontinued IV Vancomycin as MRSA neg. On IV Zosyn - Day 3 today ---> Change to Levofloxacin 500 mg daily x 4 more days to complete course of 7 days of antibiotics as it would cover UTI/Possible pulmonary source as does have cough. -Blood cx x 2- No growth, Urine cx- Pin point growth---> Reincubating --> 10k CFU- GNB- follow up outpatient (3) Acute metabolic encephalopathy: Lethargy at [facility], improving while in ED --> Continues to improve. Tolerating PO diet -In setting of UTI, LATONIA, possibly PNA -CT head without acute abnormalities (4) Acute kidney injury superimposed on chronic kidney disease: Resolved -Cr elevated at 1.72 (baseline ~1) in setting of poor PO intake, urinary infection --> Trending down- 0.90 now Present on Admission?: Yes (5) Elevated troponin: Mildly trop elevation of 0.131--> 0.116--> 0.145 -Likely in setting of sepsis/LATONIA. EKG with sinus rhythm with PACs and abberent conduction. . Prolonged QTc - 478 -Echocardiogram -limited study. EF 50-55%, grade 1 diastolic dysfunction. No wall motion abnormalities. EKG - No acute abnormalities (6) COPD (chronic obstructive pulmonary disease): -No signs of exacerbation -Uses 2L NC O2 during the day PRN, 2L HS at facility -At his baseline but does takes it off intermittently (7) Chronic diastolic (congestive) heart failure: Appears clinically dry -Received IV Fluids- Gentle hydration -Not on any diuretics or BP meds (8) PAF (paroxysmal atrial fibrillation): Normal sinus rhythm (9) Dementia: Oriented to person at baseline DVT Ppx: SQ heparin Code status: DNR per [facility] paperwork and discussion with staff member. However son called overnight and wanted him to be full code. I spoke to his friend (Deborah for many years) who recommended to do this discussion with his daughter- Abigail. Called her multiple times - Unable to reach out to her. Needs to be addressed at [facility] PCP: Dr. Williamson Dispo: Ok to discharge back to [facility] today Subjective Patient is awake, alert, disoriented x3. Near his baseline. Tolerated diet well per baseline. Denies any new complaints. No overnight events. Physical Exam Physical Exam: GENERAL-awake, alert, disoriented x3, not in acute distress LUNGS- Air entry bilaterally decrease. HEART- Regular rate and rhythm. No murmurs ABDOMEN- Soft, non tender, non distended, Bowel sounds heard. EXTREMITIES-no edema NEUROMUSCULAR- Grossly moving all extremities; Unable to evaluate as not cooperative - Foleys catheter + Results & Data Vital Signs (Past 12 Hours) Vital Signs Temp Pulse Pulse Resp BP Pulse Ox 11/07/18 08:00 60 11/07/18 07:58 36.0 C L 88 20 119/66 95 11/07/18 06:53 69 18 94 11/07/18 03:05 36.7 C 73 20 106/65 96 11/07/18 01:35 64 11/07/18 00:21 36.7 C 82 16 115/70 97 (1) Sepsis Sepsis type: sepsis due to unspecified organism Qualified Code(s): A41.9 - Sepsis, unspecified organism
--- NOTE | 2018-11-07 12:08 | Discharge Summary ---
Date of Service November 07, 2018 Admission HPI Per Admitting Provider This is an 83-year-old male with a PMH of advanced dementia, COPD, neurogenic bladder with sanchez catheter, chronic diastolic heart failure and paroxysmal A. fib who presents from [facility] with lethargy and decreased urinary output. History obtained from [facility] staff and chart review due to patient's advanced dementia. At baseline, patient is a total assist who is alert and communicative and oriented to person. Since early last evening, patient has been more lethargic and not responding to staff. Also noted to have significantly decreased urinary output and decreased p.o. intake. Noted to be hypotensive at 70/48 and was brought into ED for further evaluation. Was started on oral Levaquin today for concern for UTI. Has also been treated with erythromycin eye ointment for conjunctivitis. Is a DNR per paperwork and discussion with staff at [facility]. Patient complaining of abdominal pain. Denies headache or chest pain. Remainder of ROS unobtainable due to patient's cognitive state. In ED, patient found to be hypotensive at 87/55 after receiving 750mls NSS en route from EMS. Oxygen saturation are 99% on 2 L nasal cannula. Leukocytosis of 20 K, VBG with with mild acidosis with pH of 7.32. Lactate elevated at 2.7. Procalcitonin >200. Mild troponin elevation at 0.131. CT head negative for acute abnormalities. Chest x-ray with progressive basilar interstitial opacitie s consistent with progressive interstitial lung disease versus a superimposed acute inflammatory process. CT abd/pelvis with large amount stool within the rectum but no evidence of bowel obstruction. No evidence of free air. Blood and urine cultures obtained. Patient started empirically on Zosyn. Principal Diagnosis 1. Sepsis 2. UTI secondary to foleys catheter 3. Acute metabolic encephalopathy 4. Acute kidney injury and chronic kidney disease stage III 5. Elevated troponin Secondary diagnoses on discharge 1. COPD 2. Congestive heart failure, diastolic 3. Paroxysmal atrial fibrillation 4. Dementia Discharge Exam GENERAL-awake, alert, disoriented x3, not in acute distress LUNGS- Air entry bilaterally decrease. HEART- Regular rate and rhythm. No murmurs ABDOMEN- Soft, non tender, non distended, Bowel sounds heard. EXTREMITIES-no edema NEUROMUSCULAR- Grossly moving all extremities; Unable to evaluate as not cooperative - Foleys catheter + Discharge Data Allergies Allergy/AdvReac Type Severity Reaction Status Date / Time bee venom protein (honey bee) Allergy Unknown . Verified 11/05/18 13:52 Consultations 11/05/18 15:01 ED Decision to Admit Stat 11/05/18 17:21 Consult Case Management - Discharge Planning Routine Ordered Studies 11/05/18 13:14 CT abd pelvis wo con Stat CT head/brain wo con Stat Hospital Course (1) Sepsis: (2) UTI (urinary tract infection): This is an 83-year-old male with a PMH of advanced dementia, COPD, neurogenic bladder with sanchez catheter, chronic diastolic heart failure and paroxysmal A. fib who presents from [facility] with lethargy and decreased urinary output and was found to have sepsis. -Hypotensive at 87/55, received IV fluids in ED (2L total) . Leukocytosis of 20k, lactate of 2.7, procalcitonin >200---> Trending down -UA with evidence of infection in setting of neurogenic bladder. Sanchez catheter replaced on 11/05/18. -CXR with progressive basilar interstitial opacities, possible superimposed acute inflammatory process -Received Empiric IV Zosyn, Vancomycin. Discontinued IV Vancomycin as MRSA neg. On IV Zosyn - Day 3 today ---> Change to Levofloxacin 500 mg daily x 4 more days to complete course of 7 days of antibiotics as it would cover UTI/Possible pulmonary source as does have cough. -Blood cx x 2- No growth, Urine cx- Pin point growth---> Reincubating --> 10k CFU- GNB- follow up outpatient (3) Acute metabolic encephalopathy: Lethargy at [facility], improving while in ED --> Continues to improve. Tolerating PO diet -In setting of UTI, LATONIA, possibly PNA -CT head without acute abnormalities (4) Acute kidney injury superimposed on chronic kidney disease: Resolved -Cr elevated at 1.72 (baseline ~1) in setting of poor PO intake, urinary infection --> Trending down- 0.90 now (5) Elevated troponin: Mildly trop elevation of 0.131--> 0.116--> 0.145 -Likely in setting of sepsis/LATONIA. EKG with sinus rhythm with PACs and abberent conduction. . Prolonged QTc - 478 -Echocardiogram -limited study. EF 50-55%, grade 1 diastolic dysfunction. No wall motion abnormalities. EKG - No acute abnormalities (6) COPD (chronic obstructive pulmonary disease): -No signs of exacerbation -Uses 2L NC O2 during the day PRN, 2L HS at facility -At his baseline but does takes it off intermittently (7) Chronic diastolic (congestive) heart failure: Appears clinically dry -Received IV Fluids- Gentle hydration -Not on any diuretics or BP meds (8) PAF (paroxysmal atrial fibrillation): Normal sinus rhythm (9) Dementia: Oriented to person at baseline DVT Ppx: SQ heparin Code status: DNR per [facility] paperwork and discussion with staff member. However son called overnight and wanted him to be full code. I spoke to his friend (Deborah for many years) who recommended to do this discussion with his daughter- Abigail. Called her multiple times - Unable to reach out to her. Needs to be addressed at [facility] PCP: Dr. Williamson Dispo: Ok to discharge back to [facility] today Total Time Total Time Spent Total Time Spent (In Minutes): 40 minutes Discharge Plan Discharge Items Patient Disposition: Transfer [facility] Reason For Visit: SEPSIS 2/2 UTI Discharge Diagnosis: Sepsis secondary to UTI Acute kidney injury Discharge Goals: Decrease discomfort Activity Comment: As tolerated prior to admission Non-emergency contact: Primary Care Provider Call non-emergency contact if: your symptoms worsen Follow-up/Referrals: Arlene Moody [Primary Care Provider] - Diet: Heart Healthy Diet Comment: Venus thick liquid Addtl Provider Instructions: MEDICATION CHANGES New Medication-levofloxacin 500 mg daily for 4 more days to complete course of 7 days of antibiotics for UTI/cough Follow-up urine culture results- 10 k CFU only - GNB Need to re address code status with daughter (was unable to reach out to her over phone) Prescriptions: Continued terbinafine HCl [Lamisil AT] 1 % Cream 1 applic TOPICAL HS RF: 0 acetaminophen [Tylenol] 325 mg Tablet 650 mg PO Q6H PRN (Reason: fever/pain) RF: 0 acetaminophen 650 mg Suppository 650 mg AL Q6H PRN (Reason: Fever) RF: 0 magnesium hydroxide [Milk of Magnesia] 400 mg/5 mL Suspension 30 ml PO QAM PRN (Reason: Constipation) RF: 0 bisacodyl [Dulcolax (bisacodyl)] 10 mg Suppository 10 mg AL DAILY PRN (Reason: Constipation) RF: 0 erythromycin 5 mg/gram (0.5 %) ointment 5 mg OPB BID RF: 0 ergocalciferol (vitamin D2) [Vitamin D2] 50,000 unit Capsule 50,000 unit PO MONTHLY RF: 0 ketoconazole 2 % cream 2 % topical BID RF: 0 ketoconazole 2 % cream 2 % topical BID RF: 0 levofloxacin [Levaquin] 500 mg Tablet 500 mg PO QAM 4 Days Qty: 4 RF: 0 Changed ipratropium-albuterol 0.5 mg-3 mg(2.5 mg base)/3 mL Solution For Nebulization 3 ml INHALATION Q8H PRN (Reason: SOB/WHEEZING) Qty: 0 RF: 0 Stand-Alone Forms: [facility] Discharge Orders: Discharge Order (Routine); Ordered 11/07/18 Ordered By: Katie Cutler Skilled Items Patient informed of condition?: Yes DNR: No (Need to re address code status) Discharge Level of Care: Skilled Communicable Disease: No Discharge Prognosis: Stable Admission Data Admit Date/Time: 11/05/18 15:47 Attending Provider: Katie Cutler Admit Provider: Jossie Ward Primary Care Provider: Arlene Moody Other Providers: Jossie Ward Service: Telemetry Other Pending Studies at Discharge: Yes Studies:: FOLLOW UP - URINE C/S RESULTS. Growing 10k CFU only - Gram neg bacilli
[2018-11-08] MEDS ORDERED: VANCOMYCIN TROUGH ONE (17:30)
== END 2018-11-07 14:55 | DRG 871 ==
LOC: ED 13:06 → 2S 15:47